=== PATIENT | female | born 1945 | race Caucasian/White ===

== ENCOUNTER 2019-08-29 14:23 | Outpatient (CLI) | payer MEDICARE, OTHER, SELFPAY | END 2019-08-29 14:24 | disposition home or self-care (01) | LOC: ONCMED 14:28 | PROVIDERS: Family Provider Nurse Practitioner Family; Visit Provider Internal Medicine Medical Oncology | DX: Z45.2 Encounter for adjustment and management of vascular access device (principal) | CPT/HCPCS: 96523 ==

== ENCOUNTER 2019-09-30 13:48 | Outpatient (CLI) | payer MEDICARE, OTHER, SELFPAY | END 2019-09-30 13:49 | disposition home or self-care (01) | LOC: ONCMED 13:48 | PROVIDERS: Family Provider Nurse Practitioner Family; PCP Nurse Practitioner Family; Visit Provider Internal Medicine Medical Oncology | DX: Z45.2 Encounter for adjustment and management of vascular access device (principal) | CPT/HCPCS: 96523 ==

== ENCOUNTER 2019-10-29 13:54 | Outpatient (CLI) | payer MEDICARE, OTHER, SELFPAY | END 2019-10-29 13:55 | disposition home or self-care (01) | LOC: ONCMED 13:57 | PROVIDERS: Family Provider Nurse Practitioner Family; PCP Nurse Practitioner Family; Visit Provider Internal Medicine Medical Oncology | DX: Z45.2 Encounter for adjustment and management of vascular access device (principal) | CPT/HCPCS: 96523 ==

== ENCOUNTER 2019-10-31 14:36 | Outpatient (RCR) | payer MEDICARE, OTHER, SELFPAY | END 2019-11-26 23:59 | disposition home or self-care (01) | LOC: SPT 14:36 | PROVIDERS: Family Provider Nurse Practitioner Family; PCP Nurse Practitioner Family; Referring Provider Orthopaedic Surgery; Visit Provider Orthopaedic Surgery | DX: M43.02 Spondylolysis, cervical region (principal); M54.2 Cervicalgia | CPT/HCPCS: 97110; 97161; 97530 ==

== ENCOUNTER 2019-12-05 14:06 | Outpatient (CLI) | payer MEDICARE, OTHER, SELFPAY ==
[2019-12-05 14:35] LABS: Basophils % 0.5 %; Eosinophils # 0.1 10^3/uL (0.0-0.8); Eosinophils % 1.5 %; Hematocrit 39.1 % (37.0-47.0); Hemoglobin 12.6 g/dL (11.5-15.3); Lymphocytes # 2.9 10^3/uL (0.8-4.8); Mean Corpuscular HGB Conc 32.2 g/dL (30.0-36.0); Mean Corpuscular Hemoglobin 30.1 pg (28.0-34.0); Mean Corpuscular Volume 93.5 fL (81-99); Mean Platelet Volume 11.2 fL (7.4-10.4); Monocytes # 0.9 10^3/uL (0.2-0.9); Monocytes % 12.4 %; Neutrophils # 3.4 10^3/uL (1.8-7.7); Neutrophils % 46.5 %; Nucleated Red Blood Cells % 0 %; Platelet Count 227 10^3/cmm (130-400); Red Blood Count 4.18 10^6/uL (4.1-5.3); Red Cell Distribution Width 15.9 % (12.1-15.1); White Blood Count 7.3 10^3/uL (4.0-10.0)
[2019-12-05 15:43] LABS: Alanine Aminotransferase 13 U/L (0-33); Albumin Level 4.5 g/dL (3.5-5.2); Alkaline Phosphatase 40 IU/L (35-105); Anion Gap 16.6 (5-19); Aspartate Amino Transferase 23 U/L (0-32); Blood Urea Nitrogen 16 mg/dL (8-23); Calcium 9.7 mg/dL (8.5-10.5); Carbon Dioxide 31 mmol/L (22-29); Chloride 99 mmol/L (98-107); Ferritin 19 ng/mL (15-150); Globulin 3.1 g/dL (1.3-4.6); Glucose 81 mg/dL (65-115); Iron 87 ug/dL (37-145); Osmolality Calculated 291 mOsm/kg (285-295); Percent Saturation 19.9 % (20-50); Potassium 3.6 mmol/L (3.5-5.1); Sodium 143 mmol/L (136-145); Total Bilirubin 0.5 mg/dL (0.15-1.2); Total Iron Binding Capacity 437 mcg/dl; Total Protein 7.6 g/dL (6.6-8.7); Unsaturated Iron Binding 350 ug/dL (112-347)
[2019-12-05] MEDS: denosumab 60 mg SDV SUBCUT (16:18)
--- NOTE | 2019-12-05 18:53 | ONC FU_ITS ---
Dr. Smith Patient Follow-Up Note Patient: Ayaka Butcher Unit #: [id number]: 1945 Dicatated By: Anthony Smith M.D.Date of Visit:Dec 05, 2019 Onc Med Follow-up/Prog Note Chief Complaint: Breast cancer. History of Present Illness: This is a 74 year-old woman with grade 1 infiltrating ductal carcinoma the right breast, stage IIA (T1c, N1, M0), ER/MO positive and HER-2/leno negative. She had presented with a lump in the right breast. She underwent excisional biopsy in August 2004. Pathology showed grade 1 infiltrating ductal carcinoma measuring 1.4 cm in maximum diameter. The tumor was ER and MO positive, both at 90%. It was negative for overexpression of HER-2/leno. There was microscopic involvement in one sentinel axillary lymph node. A subsequent axillary lymph node sampling showed no involvement in an additional 12 lymph nodes. She was given adjuvant chemotherapy with 3 cycles of FEC and 3 cycles of Taxotere. She completed chemotherapy in February 2005. She was then given radiation to the right breast, which she completed in May of 2005. She also was given adjuvant hormonal therapy with Femara, which she continued until May of 2010, at which point she had completed 5 years of treatment. 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 Thus far there has been no evidence of recurrence of her breast cancer. Her other medical illnesses include hypertension, hypercholesterolemia, hypothyroidism, and asthma. She has chronic atrial fibrillation, for which she is on anticoagulation with Pradaxa. She undergone placement of permanent pacemaker. She has degenerative arthritis and osteoporosis. She has been on treatment with Prolia. She also has had some anxiety/depression. She underwent right total knee arthroplasty in August of 2011. She subsequently had surgery on her left foot. She had arthroscopic surgery on her right shoulder in November 2014. She underwent placement of a pacemaker in 2016. In December 2017 she underwent ORIF for a traumatic right distal femur intercondylar periprosthetic fracture. She has a history of smoking 1 pack of cigarettes daily, but she quit smoking in 1997. INTERIM HISTORY: At her follow-up visit on 11/22/2018 she was noted to have 2 small nodules in the right breast. Her diagnostic right breast mammogram and ultrasound from 11/09/2018 was BI-RADS category 4A, suspicious. Findings included a focus of increased echotexture at the 10 o'clock position of the right breast for which biopsy was recommended. Ultrasound-guided needle biopsy of the right breast was then performed on 11/27/2018. Pathology showed dense eosinophilic connective tissues with no diagnostic tumor or significant atypia identified. It was noted that the tissue focally resembled benign cartilage or cortical bone. She is seen for a follow-up visit. Her main complaint is that she has been having a lot of pain in her neck, mainly on the left side. At times the pain is pretty severe. She was referred to a pain clinic and she was given some injections, but with no benefit. At some point she was evaluated with CT scan, which apparently just showed arthritis. She is managing it with tramadol, which she generally takes just at bedtime. She says that opiate pain medication and nonsteroidal medications bother her stomach. Her energy is not been real good, but she is still able to do some light work. She has good appetite. She has no fever, night sweats, or hot flashes. She sometimes has shortness of breath. She does not complain of cough. She has a little bit of chest pain with more strenuous exertion. She has acid reflux, but it is adequately managed with medication. Bowel function has been okay. She has urinary frequency and urgency with her diuretic. She also complains that her right leg is continued to bother her since the fracture/surgery. She occasionally has headache. She has a little bit of dizziness. 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 Medications: Azelastine HCl Solution Nasal daily PRN, Calcium + D Tablet Oral daily, Dexilant 1 (60 mg) Capsule Delayed Release Oral daily, Diltiazem HCl 1 (30 mg) Capsule SR 12 HR Oral daily, Furosemide 1 Tablet (of 40 mg) Oral daily, Lipitor 1 (10 mg) Tablet Oral at bedtime, Lyrica 1 Capsule (of 225 mg) Oral b.i.d., Metoprolol Tartrate 1.5 Tablet (of 25 mg) Oral daily, Potassium Chloride Alexa ER 1 Tablet (of 10 meq) Tablet, controlled release Oral daily, Pradaxa 1 Capsule (of 150 mg) Oral b.i.d., Synthroid 1 (100 mcg) Tablet Oral daily, TraMADol HCl 1 - 2 Tablet (of 50 mg) Oral q 6 hours PRN, Ventolin HFA 1 puff(s) (of 108 (90 base) mcg/act) Aerosol, solution Inhalation four times a day PRN, Voltaren 4 G (of 1 %) Gel (jelly) Transdermal b.i.d. Allergies: CILLINS and PAPER TAPE. Review of Systems: Constitutional - Her energy level has been lower. She does light work around the house. Her appetite is good and weight is stable. No fever, chills, hot flashes, or night sweats. ECOG score is 1, ENMT - She has seasonal allergies, and having persistent drainage. No mouth sores. No sore throat or difficulty swallowing, Hematologic/Lymphatic - She bruises easily, Respiratory - No shortness of breath. No cough. No pleuritic pain or hemoptysis, Cardiovascular - She has had intermittent angina pain when she over-exerts herself. She has atrial fibrillation, Gastrointestinal - No nausea or vomiting. She has acid reflux. No diarrhea or constipation. No blood in the stool or black stools, Genitourinary (F) - No dysuria or hematuria. She has urinary frequency and urgency with her diuretic. No incontinence, Musculoskeletal - She is having a constant pain in her neck, mainly the left side. At times it is severe. She had no improvement with injections which she received thru a pain clinic. She also has chronic pain in her right leg from a previous injury. She is getting some relief with tramadol, Integumentary - No skin complications, Neurologic - No headache. She has occasional dizziness. She continues to have neuropathy in her legs and feet, Psychiatric - No anxiety or depression. No insomnia. Vital Signs: Performed on Dec 05, 2019 15:37 Height - 63.00 in Weight - 142.4 lbs (LOW) BSA - 1.67 sq.m BMI - 25.23 Temperature - 98.3 F (LOW) Pulse - 70 /min Respiration - 18 /min BP - 118/75 mm(hg) O2 Sat - 97 % Pain - 7 Physical Examination: Constitutional - She looks pretty good generally, Eyes - Sclerae nonicteric. Conjunctivae clear, ENMT - No lesions noted in the oral cavity, Hematologic/Lymphatic - No cervical, clavicular, or axillary adenopathy, Respiratory - Lungs show diminished air movement bilaterally. There is no wheezing, Cardiovascular - Heart rhythm is irregular. There is a II/ systolic murmur. There is no gallop or rub noted, Abdomen - Soft. Liver and spleen are not enlarged. There is no abdominal mass or ascites noted and there is no inguinal adenopathy, Extremities - Slight swelling of the left foot, Neurologic - No focal neurologic deficits noted. Lab/Imaging: Test performed on Dec 05, 2019 14:10 Ferritin 19 ng/mL Iron 87 mcg/dL Sodium 143 mmol/L Iron Binding Capacity (TIBC) 437 mcg/dl Potassium 3.6 mmol/L % Iron Saturation 19.9 % Chloride 99 mmol/L CO2 31 mmol/L UIBC 350 mcg/dL Anion Gap 16.6 BUN 16 mg/dL Creatinine 0.9 mg/dL Cr Clearance (Est) 54.2300 mL/min Glucose 81 mg/dL Calcium 9.7 mg/dL Protein, Total 7.6 g/dL Albumin 4.5 g/dL Globulin 3.1 g/dL Bilirubin, Total 0.5 mg/dL ALT (SGPT) 13 U/L AST (SGOT) 23 U/L Alkaline Phosphatase 40 IU/L WBC 7.3 10 3/uL RBC 4.18 10 6/uL HGB 12.6 g/dL HCT 39.1 % MCV 93.5 fL MCH 30.1 pg MCHC 32.2 g/dL RDW 15.9 % Platelet Count 227 10 3/cmm MPV 11.2 fL Neutrophils 3.4 10 3/uL Lymphocytes 2.9 10 3/uL Monocytes 0.9 10 3/uL Eosinophils 0.1 10 3/uL Basophils 0.0 10 3/uL Neutrophil % 46.5 % Lymphocyte % 39.0 % Monocyte % 12.4 % Eosinophil % 1.5 % Basophils % 0.5 % Impression: 1. The patient has grade 1 infiltrating ductal carcinoma the right breast, stage IIA, ER/MO positive and HER-2/leno negative. 2. She underwent lumpectomy/axillary node sampling in August 2004. She was given adjuvant chemotherapy with FEC followed by Taxotere, completed in February 2005. 3. She completed radiation to the right breast in May 2005. 4. She continued adjuvant hormonal therapy with Femara until May 2010, at which point she had completed 5 years of treatment. 5. During followup she also was found to have osteoporosis, for which she has been on treatment with Prolia and calcium/vitamin D supplements. Her other medical illnesses include: 6. Hypertension. 7. Hyperlipidemia. 8. Chronic atrial fibrillation, on anticoagulation with Pradaxa. 9. She underwent placement of permanent pacemaker in 2016. 10. Hypothyroidism. 11. Asthma. 12. Obstructive sleep apnea. 13. Degenerative arthritis. 14. Anxiety/depression. In December 2017 she underwent ORIF for a traumatic distal right femur intracondylar periprosthetic fracture. She had gradual recovery, but she has had limited activity and she has had persistent pain in the right leg followig that surgery. At her follow-up visit on 10/25/2018 she was noted to have 2 small nodules in her right breast. Her right breast diagnostic mammogram and ultrasound were BI-RADS 4, suspicious. Ultrasound directed biopsy of the right breast on 11/27/2018 showed dense eosinophilic connective tissues with no diagnostic tumor or significant atypia identified. Focally there were tissues which resembled benign cartilage or cortical bone. During subsequent follow-up she had complain of shortness of breath and chest pain, and she had continuing follow-up with the clinical consultant and suction worker in [place]. At her followup visit April 2019 her laboratory studies showed evidence of iron deficiency, but that has improved with an iron/containing multiple vitamin. Recently she has been having a lot of pain in the neck area. She unfortunately did not get any benefit with local injections. A CT scan reportedly showed just arthritis and no evidence of metastatic disease. Overall, she has continued to have multiple complaints, but there has been no documented recurrence of the breast cancer. Plan: She remains on observation/expectant management for the breast cancer. She will be given Prolia 60 mg by subcutaneous injection. I will see her again in 6 months, or sooner as needed. Signed By: Anthony Smith M.D. <<Signature on File>>
== END 2019-12-05 14:07 | disposition home or self-care (01) ==
PROVIDERS: Family Provider Nurse Practitioner Family; PCP Nurse Practitioner Family; Visit Provider Internal Medicine Medical Oncology
DX: Z08 Encounter for follow-up examination after completed treatment for malignant neoplasm (principal); Z85.3 Personal history of malignant neoplasm of breast; M81.0 Age-related osteoporosis without current pathological fracture; M19.90 Unspecified osteoarthritis, unspecified site; E61.1 Iron deficiency; I10 Essential (primary) hypertension; E78.5 Hyperlipidemia, unspecified; I48.20 Chronic atrial fibrillation, unspecified; Z79.01 Long term (current) use of anticoagulants; Z95.0 Presence of cardiac pacemaker; E03.9 Hypothyroidism, unspecified; J45.909 Unspecified asthma, uncomplicated; G47.33 Obstructive sleep apnea (adult) (pediatric); F41.8 Other specified anxiety disorders; Z92.21 Personal history of antineoplastic chemotherapy; Z92.3 Personal history of irradiation; Z87.891 Personal history of nicotine dependence
CPT/HCPCS: 36591; 80053; 82728; 83540; 83550; 85025; 96372; 99214; J0897

== ENCOUNTER 2020-01-09 15:03 | Outpatient (CLI) | payer MEDICARE, OTHER, SELFPAY | END 2020-01-09 15:04 | disposition home or self-care (01) | LOC: ONCMED 15:11 | PROVIDERS: PCP Nurse Practitioner Family; Visit Provider Internal Medicine Medical Oncology | DX: Z45.2 Encounter for adjustment and management of vascular access device (principal); D50.9 Iron deficiency anemia, unspecified | CPT/HCPCS: 96523 ==

== ENCOUNTER 2020-02-10 14:07 | Outpatient (CLI) | payer MEDICARE, OTHER, SELFPAY | END 2020-02-10 14:08 | disposition home or self-care (01) | LOC: ONCMED 14:11 | PROVIDERS: PCP Nurse Practitioner Family; Visit Provider Internal Medicine Medical Oncology | DX: Z45.2 Encounter for adjustment and management of vascular access device (principal); D50.9 Iron deficiency anemia, unspecified | CPT/HCPCS: 96523 ==

== ENCOUNTER 2020-03-11 14:07 | Outpatient (CLI) | payer MEDICARE, OTHER, SELFPAY | END 2020-03-11 14:08 | disposition home or self-care (01) | LOC: ONCMED 14:12 | PROVIDERS: PCP Nurse Practitioner Family; Visit Provider Internal Medicine Medical Oncology | DX: Z45.2 Encounter for adjustment and management of vascular access device (principal); C50.211 Malignant neoplasm of upper-inner quadrant of right female breast; Z17.0 Estrogen receptor positive status [ER+]; M81.0 Age-related osteoporosis without current pathological fracture; D50.9 Iron deficiency anemia, unspecified | CPT/HCPCS: 96523 ==

== ENCOUNTER 2020-04-13 13:51 | Outpatient (CLI) | payer MEDICARE, OTHER, SELFPAY | END 2020-04-13 13:52 | disposition home or self-care (01) | LOC: ONCMED 13:53 | PROVIDERS: PCP Nurse Practitioner Family; Visit Provider Internal Medicine Medical Oncology | DX: D50.9 Iron deficiency anemia, unspecified (principal); C50.211 Malignant neoplasm of upper-inner quadrant of right female breast; Z17.0 Estrogen receptor positive status [ER+] | CPT/HCPCS: 36591 ==

== ENCOUNTER 2020-04-29 13:56 | Outpatient (CLI) | payer MEDICARE, OTHER, SELFPAY ==
--- NOTE | 2020-04-29 14:02 | XR_ITS ---
WS: [id number] SCREENING DEXA SCAN [employer] ([place]) CLINICAL INFORMATION: POSTMENOPAUSAL OSTEOPOROSIS COMPARISON: 018 FINDINGS: The L1-L4 bone mineral density measures 1.368 g/cm2. This corresponds to a T score score of 1.6 and Z score of 3.5. Left femoral neck bone mineral density measures 0.787 g/cm2. This corresponds to a T score of -1.8 an d Z score of 0.1. Right femoral neck bone mineral density measures 0.807 g/cm2. This corresponds to a T score -1.6of an d Z score of 0.3. Mean femoral neck bone mineral density measures 0.797 g/cm2. This corresponds to a T score of -1.7 an d Z score of 0.2. XR/XR DEXA axial skeleton* 43819 IMPRESSION: Osteopenia femoral necks. Patient's FRAX calculated 10 year probability for major osteoporotic fracture i s 21.2 % and osteoporotic hip fracture is 5.4%.
== END 2020-04-29 13:57 | disposition home or self-care (01) ==
LOC: RADWPI 14:00
PROVIDERS: PCP Nurse Practitioner Family; Visit Provider Nurse Practitioner Family
DX: Z78.0 Asymptomatic menopausal state (principal); M85.89 Other specified disorders of bone density and structure, multiple sites
CPT/HCPCS: 77080

== ENCOUNTER 2020-05-18 13:59 | Outpatient (CLI) | payer MEDICARE, OTHER, SELFPAY | END 2020-05-18 14:00 | disposition home or self-care (01) | LOC: ONCMED 14:03 | PROVIDERS: PCP Nurse Practitioner Family; Visit Provider Internal Medicine Medical Oncology | DX: Z45.2 Encounter for adjustment and management of vascular access device (principal) | CPT/HCPCS: 96523 ==

== ENCOUNTER 2020-06-15 06:12 | Outpatient (CLI) | payer MEDICARE, OTHER, SELFPAY ==
[2020-06-15 13:53] LABS: Basophils # 0.1 10^3/uL (0.0-0.1); Basophils % 0.9 %; Eosinophils # 0.1 10^3/uL (0.0-0.8); Eosinophils % 1.4 %; Hematocrit 40.1 % (37.0-47.0); Lymphocytes # 2.3 10^3/uL (0.8-4.8); Lymphocytes % 33.3 %; Mean Corpuscular HGB Conc 32.4 g/dL (30.0-36.0); Mean Corpuscular Volume 92.4 fL (81-99); Mean Platelet Volume 11.4 fL (7.4-10.4); Monocytes # 0.8 10^3/uL (0.2-0.9); Monocytes % 12.2 %; Neutrophils % 52.1 %; Nucleated Red Blood Cells % 0 %; Platelet Count 279 10^3/cmm (130-400); Red Blood Count 4.34 10^6/uL (4.1-5.3); Red Cell Distribution Width 14.7 % (12.1-15.1); White Blood Count 6.9 10^3/uL (4.0-10.0)
[2020-06-15 14:22] LABS: Alanine Aminotransferase 14 U/L (0-33); Albumin Level 4.6 g/dL (3.5-5.2); Alkaline Phosphatase 46 IU/L (35-105); Anion Gap 13.4 (5-19); Aspartate Amino Transferase 25 U/L (0-32); Blood Urea Nitrogen 12 mg/dL (8-23); Calcium 9.1 mg/dL (8.5-10.5); Carbon Dioxide 30 mmol/L (22-29); Chloride 100 mmol/L (98-107); Globulin 2.5 g/dL (1.3-4.6); Glucose 147 mg/dL (65-115); Osmolality Calculated 292 mOsm/kg (285-295); Potassium 3.4 mmol/L (3.5-5.1); Sodium 140 mmol/L (136-145); Total Bilirubin 0.7 mg/dL (0.15-1.2); Total Protein 7.1 g/dL (6.6-8.7)
[2020-06-15 14:51] LABS: 25 Hydroxy Vitamin D 43 ng/mL (30-100)
[2020-06-15] MEDS: denosumab 60 mg SDV SUBCUT (15:40)
--- NOTE | 2020-06-19 16:19 | ONC FU_ITS ---
Dr. Smith Patient Follow-Up Note Patient: Ayaka Butcher Unit #: [id number]: [id number] Dicatated By: Anthony Smith M.D.Date of Visit:Jun 15, 2020 Onc Med Follow-up/Prog Note Chief Complaint: Breast cancer. History of Present Illness: This is a 74 year-old woman with grade 1 infiltrating ductal carcinoma the right breast, stage IIA (T1c, N1, M0), ER/MI positive and HER-2/leno negative. She had presented with a lump in the right breast. She underwent excisional biopsy in August 2004. Pathology showed grade 1 infiltrating ductal carcinoma measuring 1.4 cm in maximum diameter. The tumor was ER and MI positive, both at 90%. It was negative for overexpression of HER-2/leno. There was microscopic involvement in one sentinel axillary lymph node. A subsequent axillary lymph node sampling showed no involvement in an additional 12 lymph nodes. She was given adjuvant chemotherapy with 3 cycles of FEC and 3 cycles of Taxotere. She completed chemotherapy in February 2005. She was then given radiation to the right breast, which she completed in May of 2005. She also was given adjuvant hormonal therapy with Femara, which she continued until May of 2010, at which point she had completed 5 years of treatment. 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 Thus far there has been no evidence of recurrence of her breast cancer. Her other medical illnesses include hypertension, hypercholesterolemia, hypothyroidism, and asthma. She has chronic atrial fibrillation, for which she is on anticoagulation with Pradaxa. She has degenerative arthritis and osteoporosis. She has been on treatment with Prolia. She also has had some anxiety/depression. She underwent right total knee arthroplasty in August of 2011. She subsequently had surgery on her left foot. She had arthroscopic surgery on her right shoulder in November 2014. She underwent placement of a pacemaker in 2016. In December 2017 she underwent ORIF for a traumatic right distal femur intercondylar periprosthetic fracture. She has a history of smoking 1 pack of cigarettes daily, but she quit smoking in 1997. INTERIM HISTORY: At her follow-up visit on 11/22/2018 she was noted to have 2 small nodules in the right breast. Her diagnostic right breast mammogram and ultrasound from 11/09/2018 was BI-RADS category 4A, suspicious. Findings included a focus of increased echotexture at the 10 o'clock position of the right breast for which biopsy was recommended. Ultrasound-guided needle biopsy of the right breast was then performed on 11/27/2018. Pathology showed dense eosinophilic connective tissues with no diagnostic tumor or significant atypia identified. It was noted that the tissue focally resembled benign cartilage or cortical bone. With those findings she continued observation/expectant management for the breast cancer. She also continued treatment with Prolia for the osteoporosis. She is seen for a follow-up visit. She has been feeling pretty good generally, though her energy is so-so. She has had worsening pain in her neck, and she indicates that she is going to be having neck surgery. She is still able to do light work. ECOG score is 1. Her appetite is good. She has no fever, night sweats, or hot flashes. She has some shortness of breath. She does not complain of cough and she has not been having chest pain. She continues to have some acid reflux. She has been on treatment with Dexilant. Bowel and bladder function have been okay. She also has persistent pain in her right leg following the fracture and surgery in 2018. Medications: Azelastine HCl Solution Nasal daily PRN, Calcium + D Tablet Oral daily, Dexilant 1 Capsule (of 60 mg) Capsule Delayed Release Oral daily, Furosemide 2 Tablet (of 20 mg) Oral daily, Lipitor 1 (10 mg) Tablet Oral at bedtime, Lyrica 1 Capsule (of 225 mg) Oral b.i.d., Metoprolol Tartrate 1.5 Tablet (of 25 mg) Oral daily, Potassium Chloride Alexa ER 1 Tablet (of 10 meq) Tablet, controlled release Oral daily, Synthroid 1 (100 mcg) Tablet Oral daily, Taztia XT 1 Capsule (of 120 mg) Capsule SR 24 HR Oral daily, TraMADol HCl 1 - 2 Tablet (of 50 mg) Oral q 6 hours PRN, Ventolin HFA 1 puff(s) (of 108 (90 base) mcg/act) Aerosol, solution Inhalation four times a day PRN, Vitamin D3 1 Tablet Oral daily, Voltaren 4 G (of 1 %) Gel (jelly) Transdermal b.i.d. Allergies: CILLINS and PAPER TAPE. Review of Systems: Constitutional - Her energy is so-so. She is able to do light work. Appetite is good and weight is stable. No fever, night sweats, or hot flashes. ECOG score is 1, ENMT - She has sinus congestion/drainage. No mouth sores. No sore throat or difficulty swallowing, Hematologic/Lymphatic - She does have some bruising on the Eliquis, Respiratory - She has some shortness of breath. No cough. No pleuritic pain or hemoptysis, Cardiovascular - No angina pain. No palpitations, Gastrointestinal - No nausea or vomiting. She has acid reflux. No diarrhea or constipation. No blood in the stool or black stools, Genitourinary (F) - No dysuria or hematuria. No urinary frequency. No urgency or incontinence, Musculoskeletal - She has pain in her neck and she continues to have pain in her right leg, Integumentary - No skin rash, Neurologic - She occasionally has headache. She does get a little bit lightheaded. She has some numbness/tingling in her left arm. No other focal neurologic symptoms, Psychiatric - She has some anxiety. She says she is able to sleep about 5 hours. Vital Signs: Performed on Jun 15, 2020 15:09 Height - 63.00 in Weight - 134.4 lbs (LOW) BSA - 1.63 sq.m BMI - 23.81 Temperature - 97.3 F (LOW) Pulse - 77 /min Respiration - 20 /min BP - 113/66 mm(hg) O2 Sat - 98 % Pain - 4 Physical Examination: Constitutional - She looks pretty good generally, Eyes - Sclerae nonicteric. Conjunctivae clear, ENMT - No lesions noted in the oral cavity, Hematologic/Lymphatic - No cervical or clavicular adenopathy, Respiratory - Lungs sound clear with diminished air movement bilaterally, Cardiovascular - Heart rhythm is irregular. There is a II/ systolic murmur. There is no gallop or rub noted, Breasts - The right breast is generally indurated. There is no discrete mass palpable. The left breast shows no mass. There is no axillary adenopathy, Abdomen - Soft. Liver and spleen are not enlarged. There is no abdominal mass or ascites noted and there is no inguinal adenopathy, Extremities - No edema, Neurologic - No focal neurologic deficits noted. Lab/Imaging: Test performed on Jun 15, 2020 13:30 Sodium 140 mmol/L Vitamin D (25-Hydroxy), Total 43 ng/mL Potassium 3.4 mmol/L Chloride 100 mmol/L CO2 30 mmol/L Anion Gap 13.4 BUN 12 mg/dL Creatinine 0.7 mg/dL Cr Clearance (Est) 65.80 mL/min Glucose 147 mg/dL Osmolality - Calculated 292 mOsm/kg Calcium 9.1 mg/dL Protein, Total 7.1 g/dL Albumin 4.6 g/dL Globulin 2.5 g/dL Bilirubin, Total 0.7 mg/dL ALT (SGPT) 14 U/L AST (SGOT) 25 U/L Alkaline Phosphatase 46 IU/L WBC 6.9 10 3/uL RBC 4.34 10 6/uL HGB 13.0 g/dL HCT 40.1 % MCV 92.4 fL MCH 30.0 pg MCHC 32.4 g/dL RDW 14.7 % Platelet Count 279 10 3/cmm MPV 11.4 fL Neutrophils 3.60 10 3/uL Lymphocytes 2.3 10 3/uL Monocytes 0.8 10 3/uL Eosinophils 0.1 10 3/uL Basophils 0.1 10 3/uL Neutrophil % 52.1 % Lymphocyte % 33.3 % Monocyte % 12.2 % Eosinophil % 1.4 % Basophils % 0.9 % NRBC % 0 % Impression: 1. The patient has grade 1 infiltrating ductal carcinoma the right breast, stage IIA, ER/MI positive and HER-2/leno negative. 2. She underwent lumpectomy/axillary node sampling in August 2004. She was given adjuvant chemotherapy with FEC followed by Taxotere, completed in February 2005. 3. She completed radiation to the right breast in May 2005. 4. She continued adjuvant hormonal therapy with Femara until May 2010, at which point she had completed 5 years of treatment. 5. During followup she also was found to have osteoporosis, for which she has been on treatment with Prolia and calcium/vitamin D supplements. Her other medical illnesses include: 6. Hypertension. 7. Hyperlipidemia. 8. Chronic atrial fibrillation, on anticoagulation with Pradaxa. 9. She underwent placement of permanent pacemaker in 2017. 10. Hypothyroidism. 11. Asthma. 12. Obstructive sleep apnea. 13. Degenerative arthritis. 14. Anxiety/depression. In December 2017 she underwent ORIF for a traumatic distal right femur intracondylar periprosthetic fracture. She had gradual recovery, but she has had limited activity and she has had persistent pain in the right leg followig that surgery. At her follow-up visit on 10/25/2018 she was noted to have 2 small nodules in her right breast. Her right breast diagnostic mammogram and ultrasound were BI-RADS 4, suspicious. Ultrasound directed biopsy of the right breast on 11/27/2018 showed dense eosinophilic connective tissues with no diagnostic tumor or significant atypia identified. Focally there were tissues which resembled benign cartilage or cortical bone. During subsequent follow-up she had complain of shortness of breath and chest pain, and she had continuing follow-up with the qc analyst and air traffic control supervisor in [place]. At her followup visit April 2019 her laboratory studies showed evidence of iron deficiency, but that improved with an iron/containing multiple vitamin. She has had worsening neck pain, and she apparently is now going to be having surgery on her neck. She has persistent pain in her right leg following the fracture and surgery in 2018. However, thus far there has been no evidence of recurrence of the breast cancer. Plan: She remains on observation/expectant management for the breast cancer. She will be given Prolia 60 mg by subcutaneous injection for her osteoporosis. I will see her again in 6 months, or sooner as needed. In the meantime, she will increase her potassium supplement to twice a day. Signed By: Anthony Smith M.D. <<Signature on File>>
== END 2020-06-15 06:13 | disposition home or self-care (01) ==
LOC: ONCMED 06:14
PROVIDERS: PCP Nurse Practitioner Family; Visit Provider Internal Medicine Medical Oncology
DX: Z08 Encounter for follow-up examination after completed treatment for malignant neoplasm (principal); Z85.3 Personal history of malignant neoplasm of breast; M81.0 Age-related osteoporosis without current pathological fracture; D50.9 Iron deficiency anemia, unspecified; E03.9 Hypothyroidism, unspecified; E78.5 Hyperlipidemia, unspecified; F41.9 Anxiety disorder, unspecified; F32.9 Major depressive disorder, single episode, unspecified; I10 Essential (primary) hypertension; I48.0 Paroxysmal atrial fibrillation; G47.33 Obstructive sleep apnea (adult) (pediatric); J45.909 Unspecified asthma, uncomplicated; Z79.01 Long term (current) use of anticoagulants; Z95.0 Presence of cardiac pacemaker
CPT/HCPCS: 36591; 80053; 82306; 85025; 96372; 99214; J0897

== ENCOUNTER 2020-06-26 10:53 | Outpatient (CLI) | payer MEDICARE, OTHER, SELFPAY ==
--- NOTE | 2020-06-26 11:00 | MM_ITS ---
WS: [id number] DIAGNOSTIC BILATERAL DIGITAL MAMMOGRAM WITH CAD HISTORY: HX OF BREAST CA COMPARISON: 06/20/2019, 03/07/2019, 04/25/2018 TECHNIQUE: Bilateral craniocaudad, mediolateral oblique, and mediolateral views are submitted. Comput er aided detection utilized. Breast composition: There are scattered areas of fibroglandular density. Volume loss in the RIGHT manuel ast. Postsurgical changes. There is an area of scarring and soft tissue thickening central to the nip ple which is been present on prior studies. No new findings. Benign calcifications in each breast. MM/[place] [id number] IMPRESSION: BI-RADS: 2-Benign FOLLOW UP: 1 Year Follow-up
== END 2020-06-26 10:54 | disposition home or self-care (01) ==
LOC: ONCMED 10:57
PROVIDERS: PCP Nurse Practitioner Family; Visit Provider Internal Medicine Medical Oncology
DX: Z85.3 Personal history of malignant neoplasm of breast (principal)
CPT/HCPCS: 77066

== ENCOUNTER 2020-07-13 06:26 | Outpatient (CLI) | payer MEDICARE, OTHER, SELFPAY | END 2020-07-13 06:27 | disposition home or self-care (01) | LOC: ONCMED 06:27 | PROVIDERS: PCP Nurse Practitioner Family; Visit Provider Nurse Practitioner | DX: Z45.2 Encounter for adjustment and management of vascular access device (principal) | CPT/HCPCS: 96523 ==

== ENCOUNTER 2020-08-10 14:58 | Outpatient (CLI) | payer MEDICARE, OTHER, SELFPAY | END 2020-08-10 14:59 | disposition home or self-care (01) | LOC: ONCMED 15:01 | PROVIDERS: PCP Family Medicine; Visit Provider Nurse Practitioner | DX: Z45.2 Encounter for adjustment and management of vascular access device (principal) | CPT/HCPCS: 96523 ==

== ENCOUNTER 2020-09-14 14:58 | Outpatient (CLI) | payer MEDICARE, OTHER, SELFPAY | END 2020-09-14 14:59 | disposition home or self-care (01) | PROVIDERS: PCP Family Medicine; Visit Provider Nurse Practitioner | DX: Z45.2 Encounter for adjustment and management of vascular access device (principal) | CPT/HCPCS: 96523 ==

== ENCOUNTER 2020-10-20 14:55 | Outpatient (CLI) | payer MEDICARE, OTHER, SELFPAY | END 2020-10-20 14:56 | disposition home or self-care (01) | LOC: ONCMED 14:58 | PROVIDERS: PCP Family Medicine; Visit Provider Nurse Practitioner | DX: Z45.2 Encounter for adjustment and management of vascular access device (principal) | CPT/HCPCS: 96523 ==

== ENCOUNTER 2020-11-23 14:57 | Outpatient (CLI) | payer MEDICARE, OTHER, SELFPAY | END 2020-11-23 14:58 | disposition home or self-care (01) | LOC: ONCMED 15:00 | PROVIDERS: PCP Family Medicine; Visit Provider Nurse Practitioner | DX: Z45.2 Encounter for adjustment and management of vascular access device (principal) | CPT/HCPCS: 96523 ==

== ENCOUNTER 2020-12-09 12:31 | Outpatient (CLI) | payer MEDICARE, OTHER, SELFPAY ==
[2020-12-09 13:05] LABS: Basophils # 0.1 10^3/uL (0.0-0.1); Basophils % 0.8 %; Eosinophils # 0.1 10^3/uL (0.0-0.8); Eosinophils % 1.3 %; Hematocrit 35.8 % (37.0-47.0); Hemoglobin 11.3 g/dL (11.5-15.3); Lymphocytes # 1.7 10^3/uL (0.8-4.8); Lymphocytes % 27.5 %; Mean Corpuscular HGB Conc 31.6 g/dL (30.0-36.0); Mean Corpuscular Hemoglobin 27.8 pg (28.0-34.0); Mean Platelet Volume 10.8 fL (7.4-10.4); Monocytes # 0.8 10^3/uL (0.2-0.9); Monocytes % 12.7 %; Neutrophils # 3.52 10^3/uL (1.8-7.7); Neutrophils % 57.4 %; Nucleated Red Blood Cells % 0 %; Platelet Count 272 10^3/cmm (130-400); Red Blood Count 4.07 10^6/uL (4.1-5.3); Red Cell Distribution Width 15.3 % (12.1-15.1); White Blood Count 6.1 10^3/uL (4.0-10.0)
[2020-12-09 13:47] LABS: 25 Hydroxy Vitamin D 48 ng/mL (30-100); Alanine Aminotransferase 14 U/L (0-33); Albumin Level 4.1 g/dL (3.5-5.2); Alkaline Phosphatase 61 IU/L (35-105); Anion Gap 12.1 (5-19); Aspartate Amino Transferase 23 U/L (0-32); Blood Urea Nitrogen 10 mg/dL (8-23); Calcium 8.6 mg/dL (8.5-10.5); Carbon Dioxide 30 mmol/L (22-29); Chloride 97 mmol/L (98-107); Globulin 2.6 g/dL (1.3-4.6); Glucose 83 mg/dL (65-115); Osmolality Calculated 278 mOsm/kg (285-295); Potassium 4.1 mmol/L (3.5-5.1); Sodium 135 mmol/L (136-145); Total Bilirubin 0.8 mg/dL (0.15-1.2); Total Protein 6.7 g/dL (6.6-8.7)
[2020-12-09] MEDS: denosumab 60 mg SDV SUBCUT (14:45)
[2020-12-09 14:54] LABS: Iron 62 ug/dL (37-145); Percent Saturation 13.8 % (20-50); Total Iron Binding Capacity 448 mcg/dl; Unsaturated Iron Binding 386 ug/dL (112-347)
--- NOTE | 2020-12-10 07:16 | ONC FU_ITS ---
Dr. Smith Patient Follow-Up Note Patient: Ayaka Butcher Unit #: [id number]: 1945 Dicatated By: Anthony Smith M.D.Date of Visit:Dec 09, 2020 Onc Med Follow-up/Prog Note Chief Complaint: Breast cancer. History of Present Illness: This is a 75 year-old woman with grade 1 infiltrating ductal carcinoma the right breast, stage IIA (T1c, N1, M0), ER/KY positive and HER-2/leno negative. She had presented with a lump in the right breast. She underwent excisional biopsy in August 2004. Pathology showed grade 1 infiltrating ductal carcinoma measuring 1.4 cm in maximum diameter. The tumor was ER and KY positive, both at 90%. It was negative for overexpression of HER-2/leno. There was microscopic involvement in one sentinel axillary lymph node. A subsequent axillary lymph node sampling showed no involvement in an additional 12 lymph nodes. She was given adjuvant chemotherapy with 3 cycles of FEC and 3 cycles of Taxotere. She completed chemotherapy in February 2005. She was then given radiation to the right breast, which she completed in May of 2005. She also was given adjuvant hormonal therapy with Femara, which she continued until May of 2010, at which point she had completed 5 years of treatment. 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 Thus far there has been no evidence of recurrence of her breast cancer. Her other medical illnesses include hypertension, hypercholesterolemia, hypothyroidism, and asthma. She has chronic atrial fibrillation, for which she is on anticoagulation with Pradaxa. She has degenerative arthritis and osteoporosis. She has been on treatment with Prolia. She also has had some anxiety/depression. She underwent right total knee arthroplasty in August of 2011. She subsequently had surgery on her left foot. She had arthroscopic surgery on her right shoulder in November 2014. She underwent placement of a pacemaker in 2016. In December 2017 she underwent ORIF for a traumatic right distal femur intercondylar periprosthetic fracture. She has a history of smoking 1 pack of cigarettes daily, but she quit smoking in 1997. INTERIM HISTORY: At her follow-up visit on 11/22/2018 she was noted to have 2 small nodules in the right breast. Her diagnostic right breast mammogram and ultrasound from 11/09/2018 was BI-RADS category 4A, suspicious. Findings included a focus of increased echotexture at the 10 o'clock position of the right breast for which biopsy was recommended. Ultrasound-guided needle biopsy of the right breast was then performed on 11/27/2018. Pathology showed dense eosinophilic connective tissues with no diagnostic tumor or significant atypia identified. It was noted that the tissue focally resembled benign cartilage or cortical bone. With those findings she continued observation/expectant management for the breast cancer. She also continued treatment with Prolia for the osteoporosis. Her repeat bone density on 04/29/2020 showed osteopenia with T score -1.8 in the left femoral neck and -1.6 in the right femoral neck. The lumbar spine showed normal T score 1.6. She is seen for a follow-up visit. She has been feeling pretty good generally. She recently underwent a root canal procedure, and she does have a sore jaw from that. She has not had much activity lately, but her energy is otherwise pretty good. ECOG score is 1. She has good appetite. She has not had fever or hot flashes. She had 1 recent episode of sweating. She has some allergy related sinus symptoms. She does not complain of cough. She does have shortness of breath with activity. She uses oxygen as needed. She occasionally has a little chest pain. She has had some acid reflux, but it is generally controlled with her medication. Bowel and bladder function have been okay. She has had significant improvement in her neck pain following cervical spine surgery in June. She still has some pain in her right leg and knee, and she also has some pain in her left foot. She does not complain of headache, and she has no focal neurologic symptoms. Medications: Azelastine HCl Solution Nasal daily PRN, Calcium + D Tablet Oral daily, Dexilant 1 Capsule (of 60 mg) Capsule Delayed Release Oral daily, Furosemide 2 Tablet (of 20 mg) Oral daily, Lipitor 1 (10 mg) Tablet Oral at bedtime, Lyrica 1 Capsule (of 225 mg) Oral b.i.d., Metoprolol Tartrate 1.5 Tablet (of 25 mg) Oral daily, Potassium Chloride Alexa ER 1 Tablet (of 10 meq) Tablet, controlled release Oral daily, Synthroid 1 (100 mcg) Tablet Oral daily, Taztia XT 1 Capsule (of 120 mg) Capsule SR 24 HR Oral daily, TraMADol HCl 1 - 2 Tablet (of 50 mg) Oral q 6 hours PRN, Ventolin HFA 1 puff(s) (of 108 (90 base) mcg/act) Aerosol, solution Inhalation four times a day PRN, Vitamin D3 1 Tablet Oral daily, Voltaren 4 G (of 1 %) Gel (jelly) Transdermal b.i.d. Allergies: CILLINS and PAPER TAPE. Vital Signs: Performed on Dec 09, 2020 15:09 Height - 63.00 in Weight - 140.4 lbs (HIGH) BSA - 1.66 sq.m BMI - 24.87 Temperature - 95.8 F (LOW) Pulse - 88 /min Respiration - 18 /min BP - 97/68 mm(hg) O2 Sat - 96 % Pain - 6 Fatigue - 3 Physical Examination: Constitutional - She looks pretty good generally, Eyes - Sclerae nonicteric. Conjunctivae clear, ENMT - No lesions noted in the oral cavity, Hematologic/Lymphatic - No cervical, clavicular, or axillary adenopathy, Respiratory - Lungs sound clear with diminished air movement bilaterally, Cardiovascular - Heart rhythm is irregular. There is a II/ systolic murmur. There is no gallop or rub noted, Abdomen - Soft. Liver and spleen are not enlarged. There is no abdominal mass or ascites noted and there is no inguinal adenopathy, Extremities - There is mild swelling of the left leg, Neurologic - No focal neurologic deficits noted. Lab/Imaging: Test performed on Dec 09, 2020 12:50 Iron 62 mcg/dL Sodium 135 mmol/L Vitamin D (25-Hydroxy), Total 48 ng/mL Iron Binding Capacity (TIBC) 448 mcg/dl Potassium 4.1 mmol/L % Iron Saturation 13.8 % Chloride 97 mmol/L CO2 30 mmol/L UIBC 386 mcg/dL Anion Gap 12.1 BUN 10 mg/dL Creatinine 0.6 mg/dL Cr Clearance (Est) 78.94 mL/min Glucose 83 mg/dL Osmolality - Calculated 278 mOsm/kg Calcium 8.6 mg/dL Protein, Total 6.7 g/dL Albumin 4.1 g/dL Globulin 2.6 g/dL Bilirubin, Total 0.8 mg/dL ALT (SGPT) 14 U/L AST (SGOT) 23 U/L Alkaline Phosphatase 61 IU/L WBC 6.1 10 3/uL RBC 4.07 10 6/uL HGB 11.3 g/dL HCT 35.8 % MCV 88.0 fL MCH 27.8 pg MCHC 31.6 g/dL RDW 15.3 % Platelet Count 272 10 3/cmm MPV 10.8 fL Neutrophils 3.52 10 3/uL Lymphocytes 1.7 10 3/uL Monocytes 0.8 10 3/uL Eosinophils 0.1 10 3/uL Basophils 0.1 10 3/uL Neutrophil % 57.4 % Lymphocyte % 27.5 % Monocyte % 12.7 % Eosinophil % 1.3 % Basophils % 0.8 % NRBC % 0 % Problem List: 1. Grade 1 infiltrating ductal carcinoma the right breast, stage IIA, ER/KY positive and HER-2/leno negative. She underwent lumpectomy/axillary node sampling in August 2004. 2. 2. During followup she was found to have osteoporosis, for which she has been on treatment with Prolia and calcium/vitamin D supplements. 3. She has had iron deficiency anemia. 3. Hypertension. 4. Hyperlipidemia. 5. Chronic atrial fibrillation, on anticoagulation with Pradaxa. 6. She underwent placement of permanent pacemaker in 2016. 7. Hypothyroidism. 8. Asthma. 9. Obstructive sleep apnea. 10. Degenerative arthritis. 11. In December 2017 she underwent ORIF for a traumatic distal right femur intracondylar periprosthetic fracture. 12. Anxiety/depression. Problems Addressed with this Encounter and Plan: 1. The patient has grade 1 infiltrating ductal carcinoma the right breast, stage IIA, ER/KY positive and HER-2/leno negative. She underwent lumpectomy/axillary node sampling in August 2004. She was given adjuvant chemotherapy with FEC followed by Taxotere, completed in February 2005. She completed radiation to the right breast in May 2005. She continued adjuvant hormonal therapy with Femara until May 2010, at which point she had completed 5 years of treatment. She was then followed expectantly. During follow-up she has had persistent neuropathy symptoms from the chemotherapy. In November 2018 she underwent ultrasound-guided needle biopsy of the right breast for suspicious changes on her surveillance mammogram, but pathology showed no malignancy. Overall, she has been doing well clinically with no evidence of recurrence of the breast cancer. She remains on observation/expectant management for the breast cancer. She should continue yearly surveillance with bilateral diagnostic mammograms. These will be due again in May, I will get those scheduled. I also will have her see Dr. Thakkar for removal of her Port-A-Cath. At this point she will otherwise just continue regular follow-up with [facility], and I will plan to see her again only as needed. 2. In the past she had evidence of osteoporosis, for which she has been on treatment with Prolia. On her repeat DEXA scan in April 2020, her femoral neck T-scores were in the osteopenia range. As such, she will be given her scheduled dose of Prolia today, but beyond that she will just continue her vitamin D supplementation and surveillance DEXA scans at 2-year intervals. 3. She is again mildly anemic with evidence of iron deficiency. She will continue her oral iron supplementation, I will schedule her for follow-up labs in 3 months. If she is not able to corrected with oral iron, she will be given the option to have parenteral iron replacement. Signed By: Anthony Smith M.D. <<Signature on File>>
== END 2020-12-09 12:32 | disposition home or self-care (01) ==
LOC: ONCMED 12:33
PROVIDERS: PCP Family Medicine; Visit Provider Internal Medicine Medical Oncology
DX: C50.811 Malignant neoplasm of overlapping sites of right female breast (principal); Z17.0 Estrogen receptor positive status [ER+]; M81.0 Age-related osteoporosis without current pathological fracture; D50.9 Iron deficiency anemia, unspecified; I10 Essential (primary) hypertension; E78.5 Hyperlipidemia, unspecified; I48.20 Chronic atrial fibrillation, unspecified; Z95.0 Presence of cardiac pacemaker; E03.9 Hypothyroidism, unspecified; J45.909 Unspecified asthma, uncomplicated; G47.33 Obstructive sleep apnea (adult) (pediatric); F41.9 Anxiety disorder, unspecified; F32.9 Major depressive disorder, single episode, unspecified; Z79.811 Long term (current) use of aromatase inhibitors; Z79.899 Other long term (current) drug therapy
CPT/HCPCS: 36591; 80053; 82306; 83540; 83550; 85025; 96372; 99214; J0897

== ENCOUNTER 2020-12-31 15:14 | Emergency (ER) | payer MEDICARE, OTHER, SELFPAY ==
--- NOTE | 2020-12-31 15:24 | XR_ITS ---
WS: [id number] Right foot, 2 views, 12/31/2020 Clinical Data: fall Comparison: None. Findings: No fractures or dislocations are seen. No bone destruction or erosion is noted. The joint spaces and soft tissues are normal. XR/XR foot RT 2V [id number] Impression: Negative right foot.
--- NOTE | 2020-12-31 15:24 | XR_ITS ---
WS: [id number] Right ankle, 2 views, 12/31/2020 Clinical Data: fall Comparison: None. Findings: No fractures or dislocations are seen. The ankle mortise is normal. The talus and calcaneus are unrem arkable. There is soft tissue swelling over the lateral malleolus. XR/XR ankle RT 2V [id number] Impression: 1. Negative for right ankle fracture. 2. Soft tissue swelling over lateral malleolus.
--- NOTE | 2020-12-31 15:28 | ED_ITS ---
HPI - Extremity Injury (Lower) General: Chief Complaint: Extremity Injury, Lower Stated Complaint: ANKLE PAIN AND SWELLING Time Seen by Provider: 12/31/20 15:20 History of Present Illness: HPI Narrative: The patient is a 75-year-old female who comes to the ER after she slipped in her shoe and rolled her right ankle. Complains of pain swelling and tenderness to the right ankle and foot. There is some bruising there. She did put an ice pack on it at home and waited an hour to call an ambulance. Neurovascularly intact distal to injury. Type of Injury: inversion Place: home Severity: moderate Relieving factors: immobilization Exacerbating factors: weight bearing, movement and palpation Context: fall Associated symptoms: Reports no associated symptoms Review of Systems General: Reports: 10 or more systems reviewed and unremarkable except in HPI and below Const: Denies: fatigue Eyes: Denies: change in vision, blurry vision or eye redness ENMT: Denies: throat pain, swelling of lips/tongue, ear or mastoid pain or nasal congestion Card: Denies: chest pain, palpitations, irregular heart rhythm, edema, dyspnea on exertion or orthopnea Resp: Denies: dyspnea, productive cough or non-productive cough GI: Denies: abdominal pain, diarrhea or GI cramping : Denies: flank pain, difficulty voiding, urinary frequency or urinary urgency Musc: Denies: neck pain, back pain, extremity pain, joint pain, joint redness, limited range of motion or muscle weakness Skin/Breast: Denies: rash, pruritus, erythema, skin pain or skin tenderness Neuro: Denies: headache(s), numbness in extremities, weakness in extremities, sensory changes, difficulty walking, dizziness, confusion or Slurred speech present Psych: Denies: anxiety or depression Endo: Denies: polyuria All/Imm: Denies: urticaria, throat swelling or tongue swelling PFSH ED PFSH: Medical History Atrial fibrillation History of pacemaker Hyperlipemia Hypothyroidism Port-A-Cath in place Vitamin D deficiency Surgical History History of cholecystectomy History of foot surgery History of lumpectomy of right breast History of total right knee replacement Family History Denies family history of Anesthesia complication Bleeding disorder Social History Smoking and tobacco status: former smoker Alcohol intake: never Physical Exam Const: COMMON NORMALS: no acute distress, average body habitus, patient oriented x3, no limitations, healthy appearing, alert and well nourished GENERAL APPEARANCE: cooperative, comfortable, well kempt and well developed ORIENTATION/CONSCIOUSNESS: Yes awake, Yes oriented to person, Yes oriented to place and Yes oriented to time HENMT: COMMON NORMALS: normocephalic, external ears normal and Normal external nose present HEAD & SCALP: normal to inspection and normocephalic NOSE: Normal external nose present EXTERNAL EAR: Yes external ears normal MOUTH: Normal oral and palatal mucosa present THROAT: posterior oropharynx normal Eye: COMMON NORMALS: Equal, round and reactive pupils present and EOMs intact bilaterally GENERAL EYE: appearance normal, both eyes and all related structures PUPIL: Yes Equal, round and reactive pupils present Neck/C-Spine: COMMON NORMALS: full ROM, no lymphadenopathy, no meningeal signs and no JVD GENERAL: Yes normal visual inspection Lymph: LYMPHATIC: no lymphadenopathy noted Chest: COMMONS NORMALS: normal inspection of the chest and normal palpation of entire chest wall Resp: COMMON NORMALS: normal respiratory effort, No retractions, No use of accessory muscles, clear to auscultation bilaterally and percussion normal EFFORT & INSPECTION: Yes able to speak in complete sentences AUSCULTATION: clear to auscultation bilaterally PERCUSSION: percussion normal Cardio: COMMON NORMALS: no JVD, regular rate, S1 normal heart sound present, S2 normal heart sound present and Peripheral pulses 2+ throughout RATE: regular rate RHYTHM: abnormal rhythm (paced on and off.) irregularly irregular HEART SOUNDS: S1 normal heart sound present and S2 normal heart sound present PERIPHERAL PULSES: Peripheral pulses 2+ throughout GI: COMMON NORMALS: Normal to inspection, nondistended, normoactive bowel sounds present, Soft to palpation, non-tender and no masses INSPECTION: Yes normal to inspection PALPATION: Yes Soft to palpation : COMMON NORMALS: Yes no CVA tenderness BLADDER/KIDNEY EXAM: Yes no CVA tenderness Back/Pelvis: COMMON NORMALS: no CVA tenderness, thoracic and lumbar spine normal to inspection, no thoracic nor lumbar tenderness and thoraco-lumbar ROM normal Extremity: COMMON NORMALS: normal to inspection, full ROM, capillary refill normal, no joint enlargement and no pedal edema GENERAL: Yes normal exam except as noted Neuro: COMMON NORMALS: patient oriented x3, CN's II-XII intact bilaterally, moves all extremities, no focal motor deficits, no sensory deficits noted and gait normal SENSORIUM/ORIENTATION: Yes alert, Yes oriented to person, Yes oriented to place and Yes oriented to time MENINGEAL SIGNS: Yes no meningeal signs Psych: COMMON NORMALS: mental status grossly normal, Normal thought process present, cooperative, normal affect and speech normal APPEARANCE: Yes well kempt ATTITUDE: Yes calm SPEECH: Yes normal speech THOUGHT PROCESS: Normal thought process present Skin: COMMON NORMALS: no rashes or lesions noted GENERAL SKIN EXAM: no rashes or lesions noted Course Vital Signs: Vital signs: Vital Signs Temperature 98.3 F 12/31/20 15:30 Pulse Rate 66 12/31/20 15:41 Respiratory Rate 16 12/31/20 15:41 Blood Pressure 111/56 12/31/20 15:41 Pulse Oximetry 97 12/31/20 15:41 MDM - Extremity Injury (Lower) MDM Narrative: Medical decision making narrative: The patient tripped and fell. X-rays are negative for fracture. She does have some swelling and bruising there. And takes apixaban for her chronic A. fib. Recommended she follow-up with orthopedic surgery in a week and placed a case management consult to help her get that appointment. ER with worsening symptoms at any time. She will let pain guide her activity and she has conveniently a knee walker at home from a previous injury. She will use this to help get around. Discharge Plan Discharge Patient Disposition: Home Clinical Impression: Ankle sprain Condition: Stable Prescriptions: No Action calcium carbonate-vitamin D3 500 mg(1,250mg) -200 unit tablet 1 tab PO DAILY RF: 0 cholecalciferol (vitamin D3) 25 mcg (1,000 unit) capsule 25 mcg PO DAILY RF: 0 Dexilant 60 mg capsule,biphase delayed releas 60 mg PO DAILY RF: 0 levothyroxine 100 mcg capsule 100 mcg PO DAILY RF: 0 potassium chloride 10 mEq capsule, extended release 10 meq PO DAILY RF: 0 furosemide 20 mg tablet 20 mg PO DAILY RF: 0 diltiazem HCl [Tiadylt ER] 120 mg capsule,extended release 24 hr 120 mg PO DAILY RF: 0 metoprolol succinate 25 mg tablet extended release 24 hr 25 mg PO DAILY RF: 0 atorvastatin 10 mg tablet 10 mg PO DAILY RF: 0 pregabalin 225 mg capsule 225 mg PO DAILY RF: 0 Eliquis 5 mg tablet 5 mg PO BID RF: 0 tramadol 50 mg tablet 50 mg PO Q6H PRNRF: 0 Discharge Orders: Discharge ED (Routine); Ordered 12/31/20 Ordered By: Edgard Lara Referrals: Carmen Morejon RN [Primary Care Provider] - Discharge Diet: Advance as tolerated Discharge Activity: Increase activity as tolerated Patient Instructions: Ankle Sprain (ED), Opioid Safety Activity Restrictions/Additional Instructions: You most likely have an ankle sprain. You may [place] wrap it to help with your pain and swelling as well as ice 20 minutes on 3 times a day. Tylenol for pain. Let pain guide her activity. You may want to keep weight off this foot is much as possible but start using it a little bit as this will help speed your recovery. Please see your primary doctor in a week if you are still having pain. I have placed a case management consult to help you get an appointment with an orthopedic surgeon to discuss this further as well. Coding Level of Care Code ED Senior Business Process Analyst for [employer] Exam Comprehensive
[2020-12-31 15:30] VITALS: BP 111/56; PULSE 66; RESP 18; TEMP 36.8; O2SAT 97; BMI 24.3
[2020-12-31 15:41] VITALS: BP 111/56; PULSE 66; RESP 16; O2SAT 97
--- NOTE | 2021-01-04 10:34 | DCPLANNER ---
legal operations manager had message to schedule a follow up appointment for patient with ortho. legal operations manager called the ortho clinic, spoke with Johanny, gave clinic patients information. legal operations manager was told that patients information would be printed and reviewed. Clinic will call patient with appointment information.
--- NOTE | 2021-01-15 15:28 | DCPLANNER ---
Patient had a follow up appointment scheduled for 01.13.[address] Kinsey at [facility]- patient did attend appointment.
== END 2020-12-31 17:32 | disposition home or self-care (01) ==
PROVIDERS: Emergency Provider Family Medicine
DX: S93.401A Sprain of unspecified ligament of right ankle, initial encounter (principal); Z79.01 Long term (current) use of anticoagulants; I48.91 Unspecified atrial fibrillation; Z95.0 Presence of cardiac pacemaker; E78.5 Hyperlipidemia, unspecified; Z87.891 Personal history of nicotine dependence; X50.1XXA Overexertion from prolonged static or awkward postures, initial encounter
CPT/HCPCS: 73600; 73620; 99283

== ENCOUNTER 2021-01-06 07:52 | Day surgery (SDC) | payer MEDICARE, OTHER, SELFPAY ==
[2021-01-05 09:24] VITALS: BMI 23.9
[2021-01-06] VITALS (7 sets, daily range): BP systolic 127–179; BP diastolic 77–114; PULSE 74–90; RESP 14–18; TEMP 36.6–36.7; O2SAT 96–100
--- NOTE | 2021-01-06 08:10 | W.PM.OPSUD ---
Surgery/Procedure H&P Update DATE OF PROCEDURE: January 06, 2021 DATE H&P PERFORMED: 12/22/20 H&P UPDATE INFORMATION: I have reviewed H&P completed within last 30 days, I have examined patient prior to procedure and No changes to prior documentation PREOP DIAGNOSIS: Port-A-Cath removal PLANNED PROCEDURE: Operation Date: 01/06/21 07:50 Proposed Procedures p Portacath Removal [id number](Not Applicable) - Isaac Thakkar MD
[2021-01-06] MEDS: sodium chloride 0.9% 1,000 ML 30 ML IV (08:12)
[2021-01-06] MEDS: lidocaine 1% INJ 20 mL SUBCUT (09:18)
--- NOTE | 2021-01-06 09:38 | PM.OP ---
Operative Report Date of procedure: January 06, 2021 Pre-op Diagnosis: Port-A-Cath removal Post-op Diagnosis: Port a cath left subclavian vein Procedure Done: Removal of Port-A-Cath left subclavian vein Surgeon: Isaac Thakkar Anesthesia: Local Condition: stable Disposition: PACU Procedure: Patient was taken to the operating room and her right chest was prepped and draped in a sterile manner. 20 mL of 1% lidocaine with 0.5% Marcaine was infiltrated around the MediPort and catheter in the left subclavian vein. Using a 15 blade the previous incision was opened, the subcutaneous tissue was divided using electrocautery and MediPort along the catheter was dissected free from the surrounding subcutaneous tissue and removed entirely. The capsule around the port was excised. The wound was irrigated with saline, hemostasis ensured with electrocautery and subcutaneous tissue was approximated using 3-0 Vicryl suture and skin was closed using running subcuticular 4-0 Monocryl suture. 4x4 and sterile dressings were used as a pressure dressing. The patient was transferred to the recovery room in stable condition. The MediPort was sent to pathology
== END 2021-01-06 10:11 | disposition home or self-care (01) ==
PROVIDERS: Visit Provider Surgery
PROC: (CPT 36589; principal; 2021-01-06 07:40)
DX: Z45.2 Encounter for adjustment and management of vascular access device (principal); Z79.01 Long term (current) use of anticoagulants; I48.91 Unspecified atrial fibrillation; Z95.0 Presence of cardiac pacemaker; E78.5 Hyperlipidemia, unspecified; E03.9 Hypothyroidism, unspecified; E55.9 Vitamin D deficiency, unspecified; Z87.891 Personal history of nicotine dependence
CPT/HCPCS: 36590; J3490; J7030

== ENCOUNTER 2021-01-11 11:20 | Outpatient (CLI) | payer MEDICARE, OTHER, SELFPAY ==
--- NOTE | 2021-01-11 11:35 | XR_ITS ---
WS: [id number] RIGHT ANKLE: 3 VIEW(S) TECHNIQUE: AP, oblique(s) and lateral. HISTORY: ACUTE RIGHT ANKLE PAIN COMPARISON: 12/31/2020 Small osseous densities distal to the fibula. These tiny avulsion fractures may have been acute on th e prior study. They are slightly more sclerotic suggesting healing. There is adjacent soft tissue esa ma over the lateral malleolus. No joint effusion or widening of the ankle mortise. No significant degenerative changes at the joint spaces. No soft tissue abnormality. XR/XR ankle RT min 3V* [id number] IMPRESSION: 1. Small avulsion fractures at the distal fibula may have been acute on the pr ior study. There are slightly more sclerotic today suggesting healing. 2. Persistent moderate soft tissue edema over the lateral malleolus.
== END 2021-01-11 11:21 | disposition home or self-care (01) ==
LOC: RADWPI 11:32
PROVIDERS: Visit Provider Nurse Practitioner Family
DX: M25.571 Pain in right ankle and joints of right foot (principal); S82.831A Other fracture of upper and lower end of right fibula, initial encounter for closed fracture; X58.XXXA Exposure to other specified factors, initial encounter; R60.0 Localized edema
CPT/HCPCS: 73610

== ENCOUNTER 2021-01-13 11:01 | Outpatient (CLI) | payer MEDICARE, OTHER, SELFPAY ==
--- NOTE | 2021-01-13 11:00 | USCV_ITS ---
Ayaka Butcher Age: 75 Gender: F : 1945 Exam Date: 01/13/2021 11:15 Ordering Phys: Amilcar Kinsey DPM Technologist: DAVID [place]am [place] [facility] [place]: SWELLING AND BRUISING HISTORY: Lower extremity swelling. PROCEDURES: Venous duplex imaging was performed in only the right lower extremity. The following venous structures were evaluated: common femoral vein, profunda vein, proximal portion of the greater saphenous vein, superficial femoral vein, and the popliteal vein. In addition, the posterior tibial and peroneal trunk were evaluated. Serial compression, augmentation maneuvers, and spectral Doppler flow evaluation were performed. FINDINGS: Normal 2-D Doppler and augmentation and compressibility throughout the lower extremity venous structures. Additional imaging through the proximal calf veins also reveals no thrombus. Limited evaluation of the greater saphenous vein is patent with no thrombus.. CONCLUSIONS No evidence of right lower extremity DVT. Odin Cardozo MD (Electronically Signed) Final Date: 13 Jan 2021 17:52 S
== END 2021-01-13 11:02 | disposition home or self-care (01) ==
LOC: RAD 11:06
PROVIDERS: PCP Nurse Practitioner Family; Visit Provider Podiatrist Foot & Ankle Surgery
DX: M79.89 Other specified soft tissue disorders (principal); S80.11XA Contusion of right lower leg, initial encounter; X58.XXXA Exposure to other specified factors, initial encounter
CPT/HCPCS: 93971

== ENCOUNTER → 2021-02-15 13:24 | Outpatient (BNVA) | payer MEDICARE, OTHER, SELFPAY | PROVIDERS: PCP Nurse Practitioner Family; Visit Provider Podiatrist Foot & Ankle Surgery | DX: M79.672 Pain in left foot (principal); S82.831A Other fracture of upper and lower end of right fibula, initial encounter for closed fracture; X58.XXXA Exposure to other specified factors, initial encounter | CPT/HCPCS: 73610; 73630 ==

== ENCOUNTER 2021-03-29 15:16 | Outpatient (CLI) | payer MEDICARE, OTHER, SELFPAY ==
--- NOTE | 2021-03-29 15:43 | XR_ITS ---
WS: [id number] PA and lateral chest, 03/29/2021 Clinical Data: VIRAL ILLNESS Comparison: Portable chest, 12/29/2017. Findings: There is cardiomegaly. No pneumonia or pneumothorax is present. The single lead pacemaker r emains in the same position. The aortic arch and descending aorta show calcification and tortuosity. No nodules, masses or effusions are seen. XR/XR chest 2V* [id number] Impression: Cardiomegaly and atherosclerosis.
== END 2021-03-29 15:17 | disposition home or self-care (01) ==
PROVIDERS: PCP Nurse Practitioner Family; Visit Provider Nurse Practitioner Family
DX: B34.9 Viral infection, unspecified (principal); I51.7 Cardiomegaly; I70.90 Unspecified atherosclerosis
CPT/HCPCS: 71046

== ENCOUNTER 2021-06-21 12:05 | Outpatient (CLI) | payer MEDICARE, OTHER, SELFPAY ==
[2021-06-21 13:01] LABS: Basophils # 0.1 10^3/uL (0.0-0.1); Basophils % 0.9 %; Eosinophils # 0.1 10^3/uL (0.0-0.8); Eosinophils % 1.5 %; Hematocrit 35.4 % (37.0-47.0); Lymphocytes # 1.7 10^3/uL (0.8-4.8); Mean Corpuscular HGB Conc 31.1 g/dL (30.0-36.0); Mean Corpuscular Hemoglobin 25.1 pg (28.0-34.0); Mean Corpuscular Volume 80.8 fl (81-99); Mean Platelet Volume 11.3 fL (7.4-10.4); Monocytes # 0.9 10^3/uL (0.2-0.9); Monocytes % 12.7 %; Neutrophils # 3.99 10^3/uL (1.8-7.7); Neutrophils % 59.6 %; Nucleated Red Blood Cells % 0 %; Platelet Count 329 10^3/cmm (130-400); Red Blood Count 4.38 10^6/uL (4.1-5.3); Red Cell Distribution Width 18.5 % (12.1-15.1); White Blood Count 6.7 10^3/uL (4.0-10.0)
[2021-06-21 13:24] LABS: Alanine Aminotransferase 21 U/L (0-33); Albumin Level 4.3 g/dL (3.5-5.2); Alkaline Phosphatase 63 IU/L (35-105); Anion Gap 15.7 (5-19); Aspartate Amino Transferase 33 U/L (0-32); Blood Urea Nitrogen 11 mg/dL (8-23); Calcium 9.1 mg/dL (8.5-10.5); Carbon Dioxide 27 mmol/L (22-29); Chloride 95 mmol/L (98-107); Globulin 2.7 g/dL (1.3-4.6); Glucose 99 mg/dL (65-115); Osmolality Calculated 277 mOsm/kg (285-295); Potassium 3.7 mmol/L (3.5-5.1); Sodium 134 mmol/L (136-145); Total Bilirubin 0.9 mg/dL (0.15-1.2)
[2021-06-21] MEDS: denosumab 60 mg SDV SUBCUT (14:10)
[2021-06-21 14:37] LABS: Iron 33 ug/dL (37-145); Percent Saturation 6.1 % (20-50); Total Iron Binding Capacity 534 mcg/dl; Unsaturated Iron Binding 501 ug/dL (112-347)
--- NOTE | 2021-06-21 18:06 | ONC FU_ITS ---
Dr. Smith Patient Follow-Up Note Patient: Ayaka Butcher Unit #: [id number]: 1945 Dicatated By: Anthony Smith M.D.Date of Visit:Jun 21, 2021 Onc Med Follow-up/Prog Note Chief Complaint: Breast cancer. History of Present Illness: This is a 75 year-old woman with grade 1 infiltrating ductal carcinoma the right breast, stage IIA (T1c, N1, M0), ER/LA positive and HER-2/leno negative. She had presented with a lump in the right breast. She underwent excisional biopsy in August 2004. Pathology showed grade 1 infiltrating ductal carcinoma measuring 1.4 cm in maximum diameter. The tumor was ER and LA positive, both at 90%. It was negative for overexpression of HER-2/leno. There was microscopic involvement in one sentinel axillary lymph node. A subsequent axillary lymph node sampling showed no involvement in an additional 12 lymph nodes. She was given adjuvant chemotherapy with 3 cycles of FEC and 3 cycles of Taxotere. She completed chemotherapy in February 2005. She was then given radiation to the right breast, which she completed in May of 2005. She also was given adjuvant hormonal therapy with Femara, which she continued until May of 2010, at which point she had completed 5 years of treatment. 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 Thus far there has been no evidence of recurrence of her breast cancer. Her other medical illnesses include hypertension, hypercholesterolemia, hypothyroidism, and asthma. She has chronic atrial fibrillation, for which she is on anticoagulation with Pradaxa. She has degenerative arthritis and osteoporosis. She has been on treatment with Prolia. She also has had some anxiety/depression. She underwent right total knee arthroplasty in August of 2011. She subsequently had surgery on her left foot. She had arthroscopic surgery on her right shoulder in November 2014. She underwent placement of a pacemaker in 2016. In December 2017 she underwent ORIF for a traumatic right distal femur intercondylar periprosthetic fracture. She has a history of smoking 1 pack of cigarettes daily, but she quit smoking in 1997. INTERIM HISTORY: At her follow-up visit on 11/22/2018 she was noted to have 2 small nodules in the right breast. Her diagnostic right breast mammogram and ultrasound from 11/09/2018 was BI-RADS category 4A, suspicious. Findings included a focus of increased echotexture at the 10 o'clock position of the right breast for which biopsy was recommended. Ultrasound-guided needle biopsy of the right breast was then performed on 11/27/2018. Pathology showed dense eosinophilic connective tissues with no diagnostic tumor or significant atypia identified. It was noted that the tissue focally resembled benign cartilage or cortical bone. With those findings she continued observation/expectant management for the breast cancer. She also continued treatment with Prolia for the osteoporosis. Her repeat bone density on 04/29/2020 showed osteopenia with T score -1.8 in the left femoral neck and -1.6 in the right femoral neck. The lumbar spine showed normal T score 1.6. She is seen for a follow-up visit. She says her energy has not been very good. Her activity has been limited by shortness of breath, and she also has had ongoing problems with swelling. She is able to do light work. ECOG score is 1. Her appetite is good. She has no fever, night sweats, or hot flashes. She has some allergy related sinus symptoms. She does not have resting dyspnea or cough. She occasionally has a little bit of chest pain. Recently she has been having a lot of nausea and she she has been having abdominal pain, mainly in the right upper quadrant area. She is also been having diarrhea. She has frequent urination with her diuretic. She has some ongoing neuropathy symptoms in the lower extremities, including tingling and burning. She currently is not having significant joint or bone pain. Medications: Azelastine HCl Solution Nasal daily PRN, Calcium + D Tablet Oral daily, Dexilant 1 Capsule (of 60 mg) Capsule Delayed Release Oral daily, Furosemide 2 Tablet (of 20 mg) Oral daily, Lipitor 1 (10 mg) Tablet Oral at bedtime, Lyrica 1 Capsule (of 225 mg) Oral b.i.d., Metoprolol Tartrate 1.5 Tablet (of 25 mg) Oral daily, Potassium Chloride Alexa ER 1 Tablet (of 10 meq) Tablet, controlled release Oral daily, Synthroid 1 (100 mcg) Tablet Oral daily, Taztia XT 1 Capsule (of 90 mg) Capsule SR 24 HR Oral daily, TraMADol HCl 1 - 2 Tablet (of 50 mg) Oral q 6 hours PRN, Ventolin HFA 1 puff(s) (of 108 (90 base) mcg/act) Aerosol, solution Inhalation four times a day PRN, Vitamin D3 1 Tablet Oral daily, Voltaren 4 G (of 1 %) Gel (jelly) Transdermal b.i.d. Allergies: CILLINS and PAPER TAPE. Vital Signs: Performed on Jun 21, 2021 14:26 Height - 63.00 in Weight - 142.4 lbs (HIGH) BSA - 1.67 sq.m BMI - 25.23 Temperature - 95.6 F (LOW) Pulse - 81 /min Respiration - 18 /min BP - 93/65 mm(hg) O2 Sat - 99 % Pain - 3 Fatigue - 7 Physical Examination: Constitutional - She looks pretty good generally, Eyes - Sclerae nonicteric. Conjunctivae clear, ENMT - No lesions noted in the oral cavity, Hematologic/Lymphatic - No cervical, clavicular, or axillary adenopathy, Respiratory - Lungs sound clear with diminished air movement bilaterally, Cardiovascular - Heart rhythm is irregular. There is a II/ systolic murmur. There is no gallop or rub noted, Abdomen - Mildly distended and tympanic. There is tenderness in the right upper quadrant. Liver and spleen are not enlarged. There is no abdominal mass or ascites noted and there is no inguinal adenopathy, Extremities - Mild edema, Neurologic - No focal neurologic deficits noted. Lab/Imaging: Test performed on Jun 21, 2021 12:20 Iron 33 mcg/dL Sodium 134 mmol/L Iron Binding Capacity (TIBC) 534 mcg/dl Potassium 3.7 mmol/L % Iron Saturation 6.1 % Chloride 95 mmol/L CO2 27 mmol/L UIBC 501 mcg/dL Anion Gap 15.7 BUN 11 mg/dL Creatinine 0.9 mg/dL Cr Clearance (Est) 53.38 mL/min Glucose 99 mg/dL Osmolality - Calculated 277 mOsm/kg Calcium 9.1 mg/dL Protein, Total 7.0 g/dL Albumin 4.3 g/dL Globulin 2.7 g/dL Bilirubin, Total 0.9 mg/dL ALT (SGPT) 21 U/L AST (SGOT) 33 U/L Alkaline Phosphatase 63 IU/L WBC 6.7 10 3/uL RBC 4.38 10 6/uL HGB 11.0 g/dL HCT 35.4 % MCV 80.8 fl MCH 25.1 pg MCHC 31.1 g/dL RDW 18.5 % Platelet Count 329 10 3/cmm MPV 11.3 fL Neutrophils 3.99 10 3/uL Lymphocytes 1.7 10 3/uL Monocytes 0.9 10 3/uL Eosinophils 0.1 10 3/uL Basophils 0.1 10 3/uL Neutrophil % 59.6 % Lymphocyte % 25.0 % Monocyte % 12.7 % Eosinophil % 1.5 % Basophils % 0.9 % NRBC % 0 % Problem List: 1. Grade 1 infiltrating ductal carcinoma the right breast, stage IIA, ER/LA positive and HER-2/leno negative. She underwent lumpectomy/axillary node sampling in August 2004. 2. 2. During followup she was found to have osteoporosis, for which she has been on treatment with Prolia and calcium/vitamin D supplements. 3. She has had iron deficiency anemia. 3. Hypertension. 4. Hyperlipidemia. 5. Chronic atrial fibrillation, on anticoagulation with Pradaxa. 6. She underwent placement of permanent pacemaker in 2017. 7. Hypothyroidism. 8. Asthma. 9. Obstructive sleep apnea. 10. Degenerative arthritis. 11. In December 2017 she underwent ORIF for a traumatic distal right femur intracondylar periprosthetic fracture. 12. Anxiety/depression. Problems Addressed with this Encounter and Plan: 1. Patient with grade 1 infiltrating ductal carcinoma the right breast, stage IIA, ER/LA positive and HER-2/leno negative. She underwent lumpectomy/axillary node sampling in August 2004. She was given adjuvant chemotherapy with FEC followed by Taxotere, completed in February 2005. She completed radiation to the right breast in May 2005. She continued adjuvant hormonal therapy with Femara until May 2010, at which point she had completed 5 years of treatment. She was then followed expectantly. During follow-up she has had persistent neuropathy symptoms from the chemotherapy. In November 2018 she underwent ultrasound-guided needle biopsy of the right breast for suspicious changes on her surveillance mammogram, but pathology showed no malignancy. Overall, she has been doing well clinically with no evidence of recurrence of the breast cancer. She remains on observation/expectant management for the breast cancer. 2. In the past she had evidence of osteoporosis, for which she has been on treatment with Prolia. On her repeat DEXA scan in April 2020, her femoral neck T-scores were in the osteopenia range. As such, she continues treatment with Prolia, 60 mg by subcutaneous injection. 3. She is mildly anemic with transferrin saturation and ferritin consistent iron deficiency. She will continue her oral iron supplementation, I will schedule her for follow-up labs in 3 months. If she is not able to corrected with oral iron, she will be given the option to have parenteral iron replacement. She has recommended to restart oral iron supplementation. If she does not tolerate it or have adequate response, she will be given the option to have parenteral iron replacement with Injectafer. 4. She has been having nausea, abdominal pain, and diarrhea. She will be scheduled for CT of the abdomen/pelvis. As she is also iron deficient, I will have her bring in a stool sample for FIT. She will have further evaluation as indicated. Signed By: Anthony Smith M.D. <<Signature on File>>
== END 2021-06-21 12:06 | disposition home or self-care (01) ==
LOC: ONCMED 12:09
PROVIDERS: PCP Nurse Practitioner Family; Visit Provider Internal Medicine Medical Oncology
DX: Z08 Encounter for follow-up examination after completed treatment for malignant neoplasm (principal); Z85.3 Personal history of malignant neoplasm of breast; M81.0 Age-related osteoporosis without current pathological fracture; D50.9 Iron deficiency anemia, unspecified; I10 Essential (primary) hypertension; E78.5 Hyperlipidemia, unspecified; I48.20 Chronic atrial fibrillation, unspecified; Z79.01 Long term (current) use of anticoagulants; Z95.0 Presence of cardiac pacemaker; E03.9 Hypothyroidism, unspecified; J45.909 Unspecified asthma, uncomplicated; G47.33 Obstructive sleep apnea (adult) (pediatric); M19.90 Unspecified osteoarthritis, unspecified site; F41.9 Anxiety disorder, unspecified; F32.9 Major depressive disorder, single episode, unspecified; Z79.899 Other long term (current) drug therapy; Z92.3 Personal history of irradiation; Z92.21 Personal history of antineoplastic chemotherapy
CPT/HCPCS: 36415; 80053; 83540; 83550; 85025; 96372; 99214; J0897

== ENCOUNTER 2021-06-23 13:48 | Outpatient (CLI) | payer MEDICARE, OTHER, SELFPAY | END 2021-06-23 13:49 | disposition home or self-care (01) | PROVIDERS: PCP Nurse Practitioner Family; Visit Provider Internal Medicine Medical Oncology | DX: C50.211 Malignant neoplasm of upper-inner quadrant of right female breast (principal); Z17.0 Estrogen receptor positive status [ER+]; M81.0 Age-related osteoporosis without current pathological fracture; D50.9 Iron deficiency anemia, unspecified; E03.9 Hypothyroidism, unspecified; E78.5 Hyperlipidemia, unspecified; F41.9 Anxiety disorder, unspecified; F32.9 Major depressive disorder, single episode, unspecified; J45.909 Unspecified asthma, uncomplicated | CPT/HCPCS: 82274 ==

== ENCOUNTER 2021-06-28 10:03 | Outpatient (CLI) | payer MEDICARE, OTHER, SELFPAY ==
--- NOTE | 2021-06-28 10:12 | CT_ITS ---
WS: [id number] CT ABDOMEN AND PELVIS WITH CONTRAST HISTORY: BREAST CANCER, RIGHT UPPER QUADRANT ABDOMINAL PAIN TECHNIQUE: Imaging performed of the abdomen and pelvis with IV contrast. Single phase imaging of the abdomen. Coronal and sagittal reformats are submitted. All CT scans at [facility] use at [address] one of these dose optimization techniques: automated exposure control; mA and/or kV adjustment per patient size (includes targeted exams where dose is matched to clinical indication); or iterative re construction. IV CONTRAST: Omnipaque 300; 95 mL IV. Oral contrast: Yes. DLP: 1254.89 mGycm COMPARISON: 09/28/2015 Lower thorax: Linear atelectasis at the LEFT lung base. Markedly enlarged RIGHT heart chambers. There is massive dilatation of the RIGHT atrium and to a lesser extent the ventricle. There is mass effect upon a small caliber LEFT ventricle. No effusion. There is marked enlargement of the IVC and hepatic veins. Marked hepatic congestion. Very large hiatal hernia. Liver/biliary system: As compared to the prior study from 2016 there has been a moderate increase in size of the liver. Heterogeneous appearance of the liver parenchyma. There are a few areas of enhance ment which I believe are all related to the dilated hepatic veins. No bile duct dilatation. No portal vein thrombosis. Surface of the liver is slightly irregular. Gallbladder: Status post cholecystectomy. Pancreas: Normal size pancreas and pancreatic duct. No adjacent inflammation. Spleen: Normal size spleen with granulomata. Adrenal glands: Normal. Right kidney: Mild atrophy of the RIGHT kidney. Focal cortical thinning upper pole. No hydronephrosis or mass. Left kidney: Mild perinephric stranding with no obstruction. Aorta: Mild atherosclerosis with no aneurysm. Very anatomy of the celiac axis. Lymphadenopathy: There are several small but new lymph nodes near the celiac axis measuring up to 7.2 mm in diameter. Additional small mesenteric and RIGHT lower quadrant lymph nodes. No retroperitoneal adenopathy. Free fluid: Small amount of free fluid within the pelvis. There is small amount of fluid tracking brayan ng the paracolic gutters. GI tract: Mild mucosal edema near the cecum, ascending colon to the descending colon. There are numer ous diverticula in the sigmoid with no obstruction or acute diverticulitis appreciated. Abdominal wall: Unremarkable abdominal wall. No hernia. Mild soft tissue anasarca. Pelvis: Small amount of free fluid in the pelvis. Urinary bladder is minimally distended. Mild soft t issue anasarca. Bones: Mild increase in the lumbar lordosis. Disc space narrowing at L4-5 and L5-S1. Bone island LEFT femoral neck. CT/CT abdomen pelvis w con* [id number] IMPRESSION: 1. Severe RIGHT heart enlargement with compression upon the LEFT heart. 2. Marked hepatic congestion probably secondary to the RIGHT heart failure. Li mata is enlarged and edematous with markedly dilated hepatic veins which is new since 09/28/2015. 3. Soft tissue anasarca. 4. Prior cholecystectomy. 5. Small amount of ascites in the pelvis may be related to the hepatic congest ion. 6. Sigmoid diverticulosis without acute diverticulitis. 7. Heterogeneous appearance of the liver is probably all due to hepatic venous congestion. There are also changes suspicious for cirrhosis. Suggest follow-up ultrasound of the liver to be sure there are no underlying subtle lesions. 8. Indeterminate but small mesenteric and RIGHT lower quadrant lymph nodes. Ma y be related to cirrhosis. 9. Large hiatal hernia.
[2021-06-28] MEDS: iohexol 300 mg/mL 50 mL Btl PO (10:34)
[2021-06-28] MEDS: iohexol 300 mg/mL 100 mL Btl IV (12:02)
== END 2021-06-28 10:04 | disposition home or self-care (01) ==
PROVIDERS: PCP Nurse Practitioner Family; Visit Provider Internal Medicine Medical Oncology
DX: C50.211 Malignant neoplasm of upper-inner quadrant of right female breast (principal); R10.11 Right upper quadrant pain; K44.9 Diaphragmatic hernia without obstruction or gangrene; K57.30 Diverticulosis of large intestine without perforation or abscess without bleeding; R60.1 Generalized edema; I51.7 Cardiomegaly; Z85.3 Personal history of malignant neoplasm of breast
CPT/HCPCS: 74177; 77066; Q9967

== ENCOUNTER 2021-06-28 14:03 | Outpatient (CLI) | payer MEDICARE, OTHER, SELFPAY ==
--- NOTE | 2021-06-28 | MM_ITS ---
WS: [id number] BILATERAL DIGITAL DIAGNOSTIC MAMMOGRAM MAMMOGRAPHY WITH CAD COMPARISON: June 26, 2020 TECHNIQUE: Bilateral CC, MLO, and ML views. FINDINGS: Scattered fibroglandular densities bilaterally. Punctate and lucent centered calcifications. Prior po stoperative changes lumpectomy right breast with parenchymal scarring and volume loss. Biopsy marker upper outer right breast. 5 mm ovoid density along the posterior nipple line stable since 2017 No suspicious focal mass, asymmetry, calcifications, or architectural distortion. No evidence of elvi gnancy. MM/[place] [id number] IMPRESSION: BI-RADS: 2-Benign FOLLOW UP: 1 Year Follow-up Recommend return to annual diagnostic mammography.
== END 2021-06-28 14:04 | disposition home or self-care (01) ==
PROVIDERS: PCP Nurse Practitioner Family; Visit Provider Internal Medicine Medical Oncology
DX: Z85.3 Personal history of malignant neoplasm of breast (principal)
CPT/HCPCS: 77066

== ENCOUNTER 2021-07-13 14:25 | Outpatient (CLI) | payer MEDICARE, OTHER, SELFPAY ==
[2021-07-13 14:56] LABS: Basophils # 0.1 10^3/uL (0.0-0.1); Basophils % 0.8 %; Eosinophils # 0.1 10^3/uL (0.0-0.8); Eosinophils % 1.8 %; Hematocrit 36.9 % (37.0-47.0); Hemoglobin 11.5 g/dL (11.5-15.3); Lymphocytes % 29.6 %; Mean Corpuscular HGB Conc 31.2 g/dL (30.0-36.0); Mean Corpuscular Hemoglobin 25.3 pg (28.0-34.0); Mean Corpuscular Volume 81.1 fl (81-99); Mean Platelet Volume 10.7 fL (7.4-10.4); Monocytes # 0.8 10^3/uL (0.2-0.9); Monocytes % 12.2 %; Neutrophils # 3.67 10^3/uL (1.8-7.7); Neutrophils % 55.4 %; Nucleated Red Blood Cells % 0 %; Platelet Count 317 10^3/cmm (130-400); Red Blood Count 4.55 10^6/uL (4.1-5.3); Red Cell Distribution Width 18.8 % (12.1-15.1); White Blood Count 6.6 10^3/uL (4.0-10.0)
[2021-07-13 15:09] LABS: Iron 189 ug/dL (37-145); Percent Saturation 38.8 % (20-50); Total Iron Binding Capacity 486 mcg/dl; Unsaturated Iron Binding 297 ug/dL (112-347)
== END 2021-07-13 14:26 | disposition home or self-care (01) ==
PROVIDERS: PCP Nurse Practitioner Family; Visit Provider Nurse Practitioner
DX: D50.9 Iron deficiency anemia, unspecified (principal)
CPT/HCPCS: 36415; 83540; 83550; 85025

== ENCOUNTER 2021-07-15 06:35 | Outpatient (CLI) | payer MEDICARE, OTHER, SELFPAY ==
--- NOTE | 2021-07-18 13:31 | ONC FU_ITS ---
Dr. Smith Patient Follow-Up Note Patient: Ayaka Butcher Unit #: [id number]: [id number] Dicatated By: Anthony Smith M.D.Date of Visit:Jul 15, 2021 Onc Med Follow-up/Prog Note Chief Complaint: Breast cancer. History of Present Illness: This is a 75 year-old woman with grade 1 infiltrating ductal carcinoma the right breast, stage IIA (T1c, N1, M0), ER/IL positive and HER-2/leno negative. She had presented with a lump in the right breast. She underwent excisional biopsy in August 2004. Pathology showed grade 1 infiltrating ductal carcinoma measuring 1.4 cm in maximum diameter. The tumor was ER and IL positive, both at 90%. It was negative for overexpression of HER-2/leno. There was microscopic involvement in one sentinel axillary lymph node. A subsequent axillary lymph node sampling showed no involvement in an additional 12 lymph nodes. She was given adjuvant chemotherapy with 3 cycles of FEC and 3 cycles of Taxotere. She completed chemotherapy in February 2005. She was then given radiation to the right breast, which she completed in May of 2005. She also was given adjuvant hormonal therapy with Femara, which she continued until May of 2010, at which point she had completed 5 years of treatment. 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 There was no evidence of recurrence of her breast cancer. At her follow-up visit on 11/22/2018 she was noted to have 2 small nodules in the right breast. Her diagnostic right breast mammogram and ultrasound from 11/09/2018 was BI-RADS category 4A, suspicious. Findings included a focus of increased echotexture at the 10 o'clock position of the right breast for which biopsy was recommended. Ultrasound-guided needle biopsy of the right breast was then performed on 11/27/2018. Pathology showed dense eosinophilic connective tissues with no diagnostic tumor or significant atypia identified. It was noted that the tissue focally resembled benign cartilage or cortical bone. With those findings she continued observation/expectant management for the breast cancer. Her other medical illnesses include hypertension, hypercholesterolemia, hypothyroidism, and asthma. She has chronic atrial fibrillation, for which she is on anticoagulation with Pradaxa. She has degenerative arthritis and osteoporosis. She has been on treatment with Prolia. She also has had some anxiety/depression. She underwent right total knee arthroplasty in August of 2011. She subsequently had surgery on her left foot. She had arthroscopic surgery on her right shoulder in November 2014. She underwent placement of a pacemaker in 2016. In December 2017 she underwent ORIF for a traumatic right distal femur intercondylar periprosthetic fracture. She has a history of smoking 1 pack of cigarettes daily, but she quit smoking in 1997. INTERIM HISTORY: Her repeat bone density on 04/29/2020 showed osteopenia with T score -1.8 in the left femoral neck and -1.6 in the right femoral neck. The lumbar spine showed normal T score 1.6. She continued treatment with Prolia. At her scheduled visit in May 2021 she was mildly anemic with hemoglobin 11.0 g and hematocrit 35.4%. Her red cell indices were mildly hypochromic/microcytic and her serum iron studies showed low transferrin saturation at 6.1%, consistent with iron deficiency. She began on oral iron supplementation with ferrous sulfate. She also brought in a stool sample for IFOB, not did come back positive. Her CT abdomen/pelvis on 06/28/2021 showed severe right heart enlargement with compression on the left heart. There was associated marked hepatic congestion as well as soft tissue anasarca. A small amount of ascites was noted in the pelvis. Indeterminate but small mesenteric and right lower quadrant lymph nodes were felt to be most likely related to cirrhosis. There was evidence of a large hiatal hernia. She is seen for a follow-up visit. She continues to complain that her energy is not very good. She is able to do some light work. ECOG score is 1. She has good appetite. She has no fever or night sweats. She has not had sore throat or cough. She does get short of breath with activity. She does not complain of chest pain. She has a little bit of acid reflux. She is having black stools and constipation with the iron supplement. Bladder function has been adequate with medication. She has ongoing problems with her arthritis, and she also has neuropathy pain. Medications: Azelastine HCl Solution Nasal daily PRN, Calcium + D Tablet Oral daily, Dexilant 1 Capsule (of 60 mg) Capsule Delayed Release Oral daily, Ferrous Sulfate 1 (325 (65 fe) mg) Tablet Oral daily, Furosemide 2 Tablet (of 20 mg) Oral daily, Lipitor 1 (10 mg) Tablet Oral at bedtime, Lyrica 1 Capsule (of 225 mg) Oral b.i.d., Metoprolol Tartrate 1.5 Tablet (of 25 mg) Oral daily, Potassium Chloride Alexa ER 1 Tablet (of 10 meq) Tablet, controlled release Oral daily, Synthroid 1 (100 mcg) Tablet Oral daily, Taztia XT 1 Capsule (of 90 mg) Capsule SR 24 HR Oral daily, TraMADol HCl 1 - 2 Tablet (of 50 mg) Oral q 6 hours PRN, Ventolin HFA 1 puff(s) (of 108 (90 base) mcg/act) Aerosol, solution Inhalation four times a day PRN, Vitamin D3 1 Tablet Oral daily, Voltaren 4 G (of 1 %) Gel (jelly) Transdermal b.i.d. Allergies: CILLINS and PAPER TAPE. Vital Signs: Performed on Jul 15, 2021 09:43 Height - 63.00 in Weight - 130.6 lbs (LOW) BSA - 1.61 sq.m BMI - 23.13 Temperature - 97.0 F (LOW) Pulse - 88 /min Respiration - 20 /min BP - 120/84 mm(hg) O2 Sat - 96 % Pain - 2 Fatigue - 4 Physical Examination: Constitutional - She looks pretty good generally, Eyes - Sclerae nonicteric. Conjunctivae clear, ENMT - No lesions noted in the oral cavity, Hematologic/Lymphatic - No cervical, clavicular, or axillary adenopathy, Respiratory - Lungs sound clear with diminished air movement bilaterally, Cardiovascular - Heart rhythm is irregular. There is a II/ systolic murmur. There is no gallop or rub noted, Abdomen - Soft. Liver and spleen are not enlarged. There is no abdominal mass or ascites noted and there is no inguinal adenopathy, Extremities - No edema, Neurologic - No focal neurologic deficits noted. Lab/Imaging: CBC shows hemoglobin 11.5 g, white blood cell count 6600, and platelet count 317,000. Her serum iron studies showed normal transferrin saturation at 38.8%. Problem List: 1. Grade 1 infiltrating ductal carcinoma the right breast, stage IIA, ER/IL positive and HER-2/leno negative. She underwent lumpectomy/axillary node sampling in August 2004. 2. 2. During followup she was found to have osteoporosis, for which she has been on treatment with Prolia and calcium/vitamin D supplements. 3. She has had iron deficiency anemia. 3. Hypertension. 4. Hyperlipidemia. 5. Chronic atrial fibrillation, on anticoagulation with Pradaxa. 6. She underwent placement of permanent pacemaker in 2016. 7. Hypothyroidism. 8. Asthma. 9. Obstructive sleep apnea. 10. Degenerative arthritis. 11. In December 2017 she underwent ORIF for a traumatic distal right femur intracondylar periprosthetic fracture. 12. Anxiety/depression. Problems Addressed with this Encounter and Plan: 1. Patient with grade 1 infiltrating ductal carcinoma the right breast, stage IIA, ER/IL positive and HER-2/leno negative. She underwent lumpectomy/axillary node sampling in August 2004. She was given adjuvant chemotherapy with FEC followed by Taxotere, completed in February 2005. She completed radiation to the right breast in May 2005. She continued adjuvant hormonal therapy with Femara until May 2010, at which point she had completed 5 years of treatment. She was then followed expectantly. During follow-up she has had persistent neuropathy symptoms from the chemotherapy. In November 2018 she underwent ultrasound-guided needle biopsy of the right breast for suspicious changes on her surveillance mammogram, but pathology showed no malignancy. Overall, she has been doing well clinically with no evidence of recurrence of the breast cancer. She remains on observation/expectant management for the breast cancer. 2. At her follow-up visit in May 2021 she was mildly anemic with serum iron studies and ferritin consistent iron deficiency. She was found to have positive stool IFOB, and she is scheduled to have further GI evaluation with Dr. Saravia. In the meantime, for now she prefers to just continue with oral iron supplementation, though she has having some constipation with it, and thus far she remains mildly anemic. Ultimately, she may require parenteral iron replacement. 3. On her CT abdomen/pelvis the right heart was noted to be markedly enlarged, and there was associated hepatic congestion. Those results have been forwarded to her artillery meteorological man. Signed By: Anthony Smith M.D. <<Signature on File>>
== END 2021-07-15 06:36 | disposition home or self-care (01) ==
LOC: ONCMED 06:35
PROVIDERS: PCP Nurse Practitioner Family; Visit Provider Internal Medicine Medical Oncology
DX: Z08 Encounter for follow-up examination after completed treatment for malignant neoplasm (principal); Z85.3 Personal history of malignant neoplasm of breast; Z90.11 Acquired absence of right breast and nipple; M81.0 Age-related osteoporosis without current pathological fracture; D50.9 Iron deficiency anemia, unspecified; I10 Essential (primary) hypertension; E78.5 Hyperlipidemia, unspecified; I48.20 Chronic atrial fibrillation, unspecified; Z79.01 Long term (current) use of anticoagulants; Z95.0 Presence of cardiac pacemaker; E03.9 Hypothyroidism, unspecified; J45.909 Unspecified asthma, uncomplicated; G47.33 Obstructive sleep apnea (adult) (pediatric); M19.90 Unspecified osteoarthritis, unspecified site; F41.9 Anxiety disorder, unspecified; F32.9 Major depressive disorder, single episode, unspecified; Z79.899 Other long term (current) drug therapy; Z92.21 Personal history of antineoplastic chemotherapy
CPT/HCPCS: 99214

== ENCOUNTER → 2021-07-20 14:47 | Outpatient (BNVA) | payer MEDICARE, OTHER, SELFPAY | PROVIDERS: PCP Nurse Practitioner Family; Visit Provider Internal Medicine | DX: Z01.812 Encounter for preprocedural laboratory examination (principal); D50.9 Iron deficiency anemia, unspecified; Z20.822 Contact with and (suspected) exposure to COVID-19 | CPT/HCPCS: 87635 ==

== ENCOUNTER 2021-07-26 06:37 | Day surgery (SDC) | payer MEDICARE, OTHER, SELFPAY ==
[2021-07-21 14:16] VITALS: BMI 23.0
--- NOTE | 2021-07-26 06:56 | W.PM.OPSFHP ---
Same Day Surgery H&P Indication for Procedure/HPI DATE OF PROCEDURE: July 26, 2021 CHIEF COMPLAINT/INDICATIONFOR SURGICAL PROCEDURE: Iron deficiency anemia PREOP DIAGNOSIS: Port-A-Cath removal PLANNED PROCEDRUE: Operation Date: 07/26/21 08:00 Proposed Procedures p EGD/Colon 27842 D50.9(Not Applicable) - Gerardo Saravia MD s Colonoscopy 18228 D50.9(Not Applicable) - Gerardo Saravia MD Medications/Allergies* Home Medications Medication Instructions Recorded Confirmed Type apixaban 5 mg tablet 5 mg PO BID 12/22/20 07/21/21 History atorvastatin 10 mg tablet 10 mg PO DAILY 12/22/20 07/21/21 History calcium carbonate 500 mg (1,250 1 tab PO DAILY 12/22/20 07/21/21 History mg)-vitamin D3 200 unit tablet cholecalciferol (vitamin D3) 25 25 mcg PO DAILY 12/22/20 07/21/21 History mcg (1,000 unit) capsule dexlansoprazole 60 mg 60 mg PO DAILY 12/22/20 07/21/21 History capsule,biphase delayed release diltiazem HCl 120 mg capsule,24 120 mg PO DAILY 12/22/20 07/21/21 History hr,extended release furosemide 20 mg tablet 20 mg PO DAILY 12/22/20 07/21/21 History levothyroxine 100 mcg capsule 100 mcg PO DAILY 12/22/20 07/21/21 History metoprolol succinate 25 mg 37.5 mg PO DAILY 12/22/20 07/21/21 History tablet,extended release 24 hr potassium chloride 10 mEq 10 meq PO DAILY 12/22/20 07/21/21 History capsule,extended release pregabalin 225 mg capsule 225 mg PO DAILY 12/22/20 07/21/21 History tramadol 50 mg tablet 50 mg PO Q6H PRN 12/22/20 07/21/21 History Allergies/Adverse Reactions Allergy/AdvReac Type Severity Reaction Status Date / Time oxycodone Allergy Vomiting Verified 07/21/21 14:05 Pertinent History/Comorbid Conditions* Medical History (Updated 07/20/21 @ 14:27 by Gerardo Saravia MD) Atrial fibrillation History of pacemaker Hyperlipemia Hypothyroidism Vitamin D deficiency Surgical History (Updated 01/06/21 @ 09:38 by Isaac Thakkar MD) History of cholecystectomy History of foot surgery History of lumpectomy of right breast History of total right knee replacement Port-A-Cath in place Removed Family History (Updated 12/22/20 @ 13:49 by ROLAN Chase) Denies family history of Anesthesia complication Bleeding disorder Social History Alcohol intake: never Pertinent Exam Findings alert, oriented x 3, clear to auscultation bilaterally, regular rate & rhythm, operative site marked and procedure specific exam findings Recommendations Surgery/Procedure today Coding Level of Care Code Acute Account Resolution Expert for Wisam Tyler
[2021-07-26 07:13] VITALS: BP 137/101; PULSE 90; RESP 20; TEMP 36.1; O2SAT 97
[2021-07-26] MEDS: sodium chloride 0.9% 1,000 ML 30 ML IV (07:24)
--- NOTE | 2021-07-26 07:39 | ANES.PREANE2 ---
Pre-Anesthetic Assessment Pre-Anesthetic Assessment: Height/Weight: Height 1.6 m Weight 58.967 kg Temp Pulse Resp BP Pulse Ox 97 F L 90 20 H 137/101 97 07/26/21 07:13 07/26/21 07:13 07/26/21 07:13 07/26/21 07:13 07/26/21 07:13 Preop Diagnosis: Port-A-Cath removal Proposed Procedure: Operation Date: 07/26/21 08:00 Proposed Procedures p EGD/Colon 61538 D50.9(Not Applicable) - Gerardo Saravia MD s Colonoscopy 47244 D50.9(Not Applicable) - Gerardo Saravia MD Was Beta Jannet taken within 24 hours: Yes Was Clonidine taken within 24 hours: N/A Last intake: Intake Last Liquid Date 07/25/21 Last Liquid Time 00:00 Last Solid Date 07/24/21 Last Solid Time 00:00 Social: Social History: Alcohol and No alcohol Exam: Pre-Anes Outpt Exam: alert, oriented x 3, clear to auscultation bilaterally and regular rate & rhythm Airway: Submandibular: WNL Cervical ROM: WNL MP: 2 Dentition: Chipped CV/HEM: CV/HEM: Anemia and HTN GI: GI: GERD Metabolic: Metabolic: Hyperlipidemia and Thyroid Anesthetic Plan: ASA status: 3 Anesthesia: MAC Risk of > 500 ml blood loss (7ml/kg in children): No Meds/Allergies Current Medications: Current Medications Generic Name Dose Route Start Last Admin Trade Name Freq PRN Reason Stop Dose Admin Sodium Chloride 1,000 mls @ 30 ml s/hr 07/26/21 07:00 07/26/21 07:24 Sodium Chloride 0.9% IV 07/27/21 06:59 30 mls/hr .Q24H MARIA DE JESUS Administration PFSH Anesthesia PFSH: Medical History Atrial fibrillation History of pacemaker Hyperlipemia Hypothyroidism Vitamin D deficiency Surgical History History of cholecystectomy History of foot surgery History of lumpectomy of right breast History of total right knee replacement Port-A-Cath in place Removed Family History Denies family history of Anesthesia complication Bleeding disorder Social History Alcohol intake: never Data Anesthesia Cardiac Studies: No Data to Display
[2021-07-26 08:37] VITALS: BP 89/61; PULSE 86; RESP 16; TEMP 36.5; O2SAT 94
[2021-07-26 08:47] VITALS: BP 91/51; PULSE 74; RESP 18; O2SAT 95
--- NOTE | 2021-07-26 13:43 | ANE.PACU2 ---
Inpatient post-anesthesia follow up: Airway intact: Yes Vital signs: Temperature 97.7 F Pulse Rate 74 Respiratory Rate 18 Blood Pressure 91/51 Pulse Oximetry 95 Oxygen Delivery Me thod Room Air Oxygen Flow Rate Fraction of Inspir ed Oxygen Hydration adequate: Yes Nausea and vomiting: No Pain level: 1 Mental status: Baseline
[2021-07-27 09:23] LABS: H. Pylori / CLO Test Negative
== END 2021-07-26 09:18 | disposition home or self-care (01) ==
PROVIDERS: PCP Nurse Practitioner Family; Visit Provider Internal Medicine
PROC: 0DJ08ZZ Inspection of Upper Intestinal Tract, Via Natural or Artificial Opening Endoscopic (ICD-10-PCS; CPT 43235; principal; 2021-07-26 08:00)
PROC: 0DJD8ZZ Inspection of Lower Intestinal Tract, Via Natural or Artificial Opening Endoscopic (ICD-10-PCS; CPT 45378; 2021-07-26 08:00)
DX: D50.9 Iron deficiency anemia, unspecified (principal); D12.2 Benign neoplasm of ascending colon; D12.0 Benign neoplasm of cecum; D12.3 Benign neoplasm of transverse colon; K57.30 Diverticulosis of large intestine without perforation or abscess without bleeding; K29.70 Gastritis, unspecified, without bleeding; E03.9 Hypothyroidism, unspecified; Z88.5 Allergy status to narcotic agent
CPT/HCPCS: 43239; 45385; 87077; 88305; 96360; J2704; J7030

== ENCOUNTER 2021-07-27 09:59 | Outpatient (CLI) | payer MEDICARE, OTHER, SELFPAY ==
--- NOTE | 2021-07-27 10:11 | US_ITS ---
WS: [id number] ULTRASOUND ABDOMEN CLINICAL INFORMATION: GENERALIZED ABDOMINAL PAIN COMPARISON: None. FINDINGS: Liver Size: Normal. Craniocaudal length: 14.5 cm. Echogenicity: Coarse Surface nodularity: None. Mass (size and location): None. Mildly dilated hepatic veins and IVC due to right heart failure Bile ducts Intrahepatic ducts: Mild dilatation Common bile duct diameter: 1.1 cm. Gallbladder Cholecystectomy Pancreas Normal as visualized. Spleen Splenomegaly: None. Craniocaudal length: 6.0 cm. Right kidney: Normal. Hydronephrosis: None. Size: 10.8,10.8 cm x 5.1,5.0 cm x 5.0,5.0 cm Left kidney: Normal. Hydronephrosis: None. Size: 10.7 cm x 4.9 cm x 3.8 cm. Abdominal aorta and IVC Visualized portions are normal. Ascites: None. US/US abdomen complete* [id number] IMPRESSION: 1. Coarse hepatic echotexture likely due to fatty infiltration. Recommend treva elation with liver function tests. Suggestion of early cirrhosis on the prior C T. 2. Markedly dilated hepatic veins and IVC due to right heart failure unchanged from previous. 3. Dilated common bile duct measuring 12 mm likely physiologic postcholecystec meghana. No visualized obstructing calculi 4. Prior cholecystectomy. 5. No hydronephrosis in either kidney.
== END 2021-07-27 10:00 | disposition home or self-care (01) ==
LOC: RAD 10:01
PROVIDERS: PCP Nurse Practitioner Family; Visit Provider Family Medicine
DX: R10.84 Generalized abdominal pain (principal); Z90.49 Acquired absence of other specified parts of digestive tract
CPT/HCPCS: 76700

== ENCOUNTER 2021-08-12 14:33 | Outpatient (CLI) | payer MEDICARE, OTHER, SELFPAY ==
[2021-08-12 15:38] LABS: Basophils # 0.1 10^3/uL (0.0-0.1); Eosinophils # 0.1 10^3/uL (0.0-0.8); Eosinophils % 1.4 %; Hematocrit 37.7 % (37.0-47.0); Hemoglobin 12.1 g/dL (11.5-15.3); Lymphocytes # 1.9 10^3/uL (0.8-4.8); Mean Corpuscular HGB Conc 32.1 g/dL (30.0-36.0); Mean Corpuscular Hemoglobin 26.6 pg (28.0-34.0); Mean Corpuscular Volume 82.9 fl (81-99); Mean Platelet Volume 11.3 fL (7.4-10.4); Monocytes # 0.8 10^3/uL (0.2-0.9); Monocytes % 13.6 %; Neutrophils # 3.01 10^3/uL (1.8-7.7); Neutrophils % 51.8 %; Nucleated Red Blood Cells % 0 %; Platelet Count 292 10^3/cmm (130-400); Red Blood Count 4.55 10^6/uL (4.1-5.3); Red Cell Distribution Width 21.9 % (12.1-15.1); White Blood Count 5.8 10^3/uL (4.0-10.0)
[2021-08-12 16:05] LABS: Ferritin 45 ng/mL (15-150); Iron 47 ug/dL (37-145); Percent Saturation 11.1 % (20-50); Total Iron Binding Capacity 421 mcg/dl; Unsaturated Iron Binding 374 ug/dL (112-347)
== END 2021-08-12 14:34 | disposition home or self-care (01) ==
PROVIDERS: PCP Nurse Practitioner Family; Visit Provider Internal Medicine Medical Oncology
DX: E55.9 Vitamin D deficiency, unspecified (principal); D50.9 Iron deficiency anemia, unspecified
CPT/HCPCS: 36415; 82728; 83540; 83550; 85025

== ENCOUNTER 2021-11-16 12:00 | Outpatient (CLI) | payer MEDICARE, OTHER, SELFPAY | END 2021-11-16 12:01 | disposition home or self-care (01) | LOC: SLEEP 11-17 14:29 | PROVIDERS: PCP Nurse Practitioner Family; Visit Provider Nurse Practitioner Family | DX: I27.20 Pulmonary hypertension, unspecified (principal) | CPT/HCPCS: 94762 ==

== ENCOUNTER 2021-11-25 13:42 | Outpatient (CLI) | payer MEDICARE, OTHER, SELFPAY ==
--- NOTE | 2021-11-25 13:51 | CT_ITS ---
WS: [id number] CT CHEST TECHNIQUE: Contrast enhanced CT of the chest with coronal and sagittal reformatted images. CLINICAL INFORMATION: PULMONARY HYPERTENSION COMPARISON: CTA chest 1 28,016 DLP: 544.[address] scans at [facility] use at least one of these dose optimization techniques: automated e xposure control; mA and/or kV adjustment per patient size (includes targeted exams where dose is matc hed to clinical indication); or iterative reconstruction. FINDINGS: Marked cardiomegaly with enlarged RIGHT atrium and reflux into the hepatic veins compatible with RIGH T heart failure. This is progressed compared to 2016. Recommend Correlation with echocardiography. Prior RIGHT mastectomy. Normal caliber thoracic aorta. Mild aortic calcification. Proximal main pulmo nary arteries are normal. No mediastinal or hilar lymphadenopathy. Enlarged ectatic hepatic veins. No axillary lymphadenopathy. Moderate to large esophageal hiatal hernia unchanged from previous. Adrena l glands are normal. Moderate thoracic kyphosis. Chronic anterior wedging in the mid thoracic spine. Moderate chronic emphysematous changes. No acute pulmonary infiltrates. No focal pneumonia or pleural fluid. Slight subsegmental atelectasis LEFT lower lobe. CT/CT chest w con* [id number] IMPRESSION: 1. Marked cardiomegaly with enlarged RIGHT atrium and reflux into the hepatic veins most compatible with RIGHT heart failure. This is progressed compared to 2016. Recommend Correlation with echocardiography and heart failure consultatio n. 2. Moderate to large esophageal hiatal hernia unchanged. 3. Moderate chronic emphysematous changes. No acute pulmonary infiltrates. 4. No mediastinal or hilar lymphadenopathy. 5. Moderate thoracic kyphosis.
[2021-11-25 14:49] LABS: Blood Urea Nitrogen 9 mg/dL (8-23)
== END 2021-11-25 13:43 | disposition home or self-care (01) ==
LOC: RAD 13:45
PROVIDERS: PCP Nurse Practitioner Family; Visit Provider Nurse Practitioner Family
DX: I27.20 Pulmonary hypertension, unspecified (principal); I51.7 Cardiomegaly; K44.9 Diaphragmatic hernia without obstruction or gangrene; M40.294 Other kyphosis, thoracic region
CPT/HCPCS: 71260; 82565; 84520; Q9967

== ENCOUNTER 2021-12-28 12:58 | Outpatient (CLI) | payer MEDICARE, OTHER, SELFPAY | END 2021-12-28 12:59 | disposition home or self-care (01) | LOC: RT 13:01 | PROVIDERS: PCP Nurse Practitioner Family; Visit Provider Nurse Practitioner Family | DX: I27.20 Pulmonary hypertension, unspecified (principal) | CPT/HCPCS: 94618 ==

== ENCOUNTER 2022-02-15 15:36 | Outpatient (CLI) | payer MEDICARE, OTHER, SELFPAY ==
--- NOTE | 2022-02-15 15:56 | XR_ITS ---
WS: [id number] THORACIC SPINE TECHNIQUE: AP and lateral views are performed. HISTORY: MASS OF SPINE COMPARISON: 03/03/2015 Bones are severely osteopenic. Marked increase in thoracic kyphosis. Disc spaces are narrowed through out. Endplate osteophytes at nearly all levels. Very slight anterior wedging throughout the mid thora cic vertebral bodies. No retropulsion. Pedicles are all identified. Moderate atherosclerotic plaque in the thoracic aorta. No destructive bone lesions XR/XR thoracic spine 3V* [id number] IMPRESSION: Marked increase in thoracic kyphosis with moderate spondylitic changes througho ut the thoracic spine. No acute fracture. Progression of spondylitic disease si nce the prior study.
== END 2022-02-15 15:37 | disposition home or self-care (01) ==
PROVIDERS: PCP Nurse Practitioner Family; Visit Provider Nurse Practitioner Family
DX: M48.9 Spondylopathy, unspecified (principal); M40.204 Unspecified kyphosis, thoracic region
CPT/HCPCS: 72072

== ENCOUNTER 2022-02-24 11:33 | Oncology outpatient (recurring) (ONCR) | payer MEDICARE, OTHER, SELFPAY ==
[2022-02-24 12:17] LABS: Basophils # 0.1 10^3/uL (0.0-0.1); Basophils % 1.2 %; Eosinophils # 0.1 10^3/uL (0.0-0.8); Eosinophils % 1.7 %; Hematocrit 36.5 % (37.0-47.0); Hemoglobin 12.2 g/dL (11.5-15.3); Lymphocytes # 1.8 10^3/uL (0.8-4.8); Lymphocytes % 34.4 %; Mean Corpuscular HGB Conc 33.4 g/dL (30.0-36.0); Mean Corpuscular Hemoglobin 30.3 pg (28.0-34.0); Mean Corpuscular Volume 90.8 fl (81-99); Mean Platelet Volume 10.9 fL (7.4-10.4); Monocytes # 0.7 10^3/uL (0.2-0.9); Monocytes % 13.7 %; Neutrophils # 2.52 10^3/uL (1.8-7.7); Neutrophils % 48.8 %; Nucleated Red Blood Cells % 0 %; Platelet Count 218 10^3/cmm (130-400); Red Blood Count 4.02 10^6/uL (4.1-5.3); Red Cell Distribution Width 13.5 % (12.1-15.1); White Blood Count 5.2 10^3/uL (4.0-10.0)
[2022-02-24 12:50] LABS: Iron 55 ug/dL (37-145); Percent Saturation 13.2 % (20-50); Total Iron Binding Capacity 414 mcg/dl; Unsaturated Iron Binding 359 ug/dL (112-347)
[2022-02-24] MEDS: denosumab 60 mg SDV SUBCUT (15:03)
== END 2022-02-24 23:59 | disposition home or self-care (01) ==
LOC: ONCMED 11:33
PROVIDERS: PCP Nurse Practitioner Family; Visit Provider Internal Medicine Medical Oncology
DX: Z85.3 Personal history of malignant neoplasm of breast (principal); D50.9 Iron deficiency anemia, unspecified; M81.0 Age-related osteoporosis without current pathological fracture; Z87.891 Personal history of nicotine dependence
CPT/HCPCS: 83540; 83550; 85025; 96372; 99214; J0897

== ENCOUNTER 2022-07-01 13:28 | Outpatient (CLI) | payer MEDICARE, OTHER, SELFPAY ==
--- NOTE | 2022-07-01 13:41 | MM_ITS ---
WS: [email or web address] Bilateral diagnostic 3D tomosynthesis digital mammogram, 07/01/2022 Clinical Data: breast cancer Comparison: 06/28/2021, 06/26/2020, 06/20/2019, 03/07/2019, 11/09/2018, 04/25/2018, 04/12/2017, 04/06/2016, 03/13/2015, 04/16/2014, 04/08/2013, 06/28/2011, 01/04/2011, 10/11/2010, 10/11/2007. Findings: The right breast shows post treatment changes with skin thickening, reduction in size and deformity o f the skin. There are benign calcifications in the right breast and a biopsy clip in the upper outer quadrant. The left breast shows fibroglandular tissue. The left breast shows no spiculated masses or clustered calcifications. There are no secondary signs of carcinoma. MM/[place] [id number] Impression: 1. Posttreatment changes of the right breast which are stable. 2. Negative left breast. 3. Recommend yearly mammograms. BIRADS: 2-Benign FOLLOW UP: 1 Year Follow-up The CAD piece work checker was used.
== END 2022-07-01 13:29 | disposition home or self-care (01) ==
LOC: RAD 13:29
PROVIDERS: PCP Internal Medicine; Visit Provider Internal Medicine Medical Oncology
DX: C50.211 Malignant neoplasm of upper-inner quadrant of right female breast (principal)
CPT/HCPCS: 77062

== ENCOUNTER 2022-08-30 14:39 | Oncology outpatient (recurring) (ONCR) | payer MEDICARE, OTHER, SELFPAY ==
[2022-08-30 15:32] LABS: Basophils # 0.1 10^3/uL (0.0-0.1); Basophils % 0.8 %; Eosinophils # 0.1 10^3/uL (0.0-0.8); Eosinophils % 1.7 %; Hematocrit 37.8 % (37.0-47.0); Hemoglobin 12.1 g/dL (11.5-15.3); Lymphocytes # 1.2 10^3/uL (0.8-4.8); Lymphocytes % 20.1 %; Mean Corpuscular Hemoglobin 26.6 pg (28.0-34.0); Mean Corpuscular Volume 83.1 fl (81-99); Mean Platelet Volume 11.1 fL (7.4-10.4); Monocytes # 0.9 10^3/uL (0.2-0.9); Monocytes % 14.2 %; Neutrophils # 3.76 10^3/uL (1.8-7.7); Nucleated Red Blood Cells % 0 %; Platelet Count 251 10^3/cmm (130-400); Red Blood Count 4.55 10^6/uL (4.1-5.3); Red Cell Distribution Width 18.4 % (12.1-15.1)
[2022-08-30] MEDS: denosumab 60 mg SDV SUBCUT (16:24)
[2022-08-30 16:38] LABS: Iron 40 ug/dL (37-145); Percent Saturation 8.6 % (20-50); Total Iron Binding Capacity 460 mcg/dl; Unsaturated Iron Binding 420 ug/dL (112-347)
[2022-08-30 18:09] LABS: Alanine Aminotransferase 15 U/L (0-33); Albumin Level 4.1 g/dL (3.5-5.2); Alkaline Phosphatase 116 U/L (35-105); Anion Gap 16.3 (5-19); Aspartate Amino Transferase 28 U/L (0-32); Blood Urea Nitrogen 10 mg/dL (8-23); Calcium 9.9 mg/dL (8.5-10.5); Carbon Dioxide 30 mmol/L (22-29); Chloride 92 mmol/L (98-107); Globulin 2.8 g/dL (1.3-4.6); Glucose 91 mg/dL (65-115); Osmolality Calculated 279 mOsm/kg (285-295); Potassium 3.3 mmol/L (3.5-5.1); Sodium 135 mmol/L (136-145); Total Protein 6.9 g/dL (6.6-8.7)
== END 2022-09-27 23:59 | disposition home or self-care (01) ==
PROVIDERS: PCP Internal Medicine; Visit Provider Internal Medicine Medical Oncology
DX: Z08 Encounter for follow-up examination after completed treatment for malignant neoplasm (principal); Z85.3 Personal history of malignant neoplasm of breast; D50.9 Iron deficiency anemia, unspecified; M81.0 Age-related osteoporosis without current pathological fracture; Z79.899 Other long term (current) drug therapy; Z92.21 Personal history of antineoplastic chemotherapy; Z87.891 Personal history of nicotine dependence
CPT/HCPCS: 36415; 80053; 83540; 83550; 85025; 96372; 99214; J0897

== ENCOUNTER 2022-09-29 13:55 | Oncology outpatient (recurring) (ONCR) | payer MEDICARE, OTHER, SELFPAY ==
[2022-09-29] MEDS: ferric carboxy (IVPB) 750 MG in sodium chloride 0.9% (100 ml) 100 ML 345 MG IV (14:29)
[2022-09-29] MEDS: sodium chloride 0.9% 250 ML 75 ML IV (14:29)
[2022-09-29 15:30] VITALS: BP 145/92; PULSE 82; RESP 18; TEMP 36.5; O2SAT 98
== END 2022-10-25 23:59 | disposition home or self-care (01) ==
PROVIDERS: PCP Internal Medicine; Visit Provider Internal Medicine Medical Oncology
DX: D50.9 Iron deficiency anemia, unspecified; Z79.899 Other long term (current) drug therapy; Z87.891 Personal history of nicotine dependence
CPT/HCPCS: 96365; J1439; J7050

== ENCOUNTER 2022-11-04 12:55 | Oncology outpatient (recurring) (ONCR) | payer MEDICARE, OTHER, SELFPAY ==
[2022-11-04 13:17] LABS: Basophils # 0.1 10^3/uL (0.0-0.1); Basophils % 0.9 %; Eosinophils # 0.1 10^3/uL (0.0-0.8); Eosinophils % 1.6 %; Hematocrit 40.9 % (37.0-47.0); Hemoglobin 13.3 g/dL (11.5-15.3); Lymphocytes % 16.1 %; Mean Corpuscular HGB Conc 32.5 g/dL (30.0-36.0); Mean Corpuscular Hemoglobin 28.5 pg (28.0-34.0); Mean Corpuscular Volume 87.8 fl (81-99); Monocytes # 0.6 10^3/uL (0.2-0.9); Monocytes % 9.4 %; Neutrophils # 4.57 10^3/uL (1.8-7.7); Neutrophils % 71.7 %; Nucleated Red Blood Cells % 0 %; Platelet Count 300 10^3/cmm (130-400); Red Blood Count 4.66 10^6/uL (4.1-5.3); Red Cell Distribution Width 22.4 % (12.1-15.1); White Blood Count 6.4 10^3/uL (4.0-10.0)
[2022-11-04 13:41] LABS: Ferritin 181 ng/mL (15-150); Iron 62 ug/dL (37-145); Percent Saturation 21.6 % (20-50); Total Iron Binding Capacity 287 mcg/dl; Unsaturated Iron Binding 225 ug/dL (112-347)
== END 2022-11-25 23:59 | disposition home or self-care (01) ==
LOC: ONCMED 12:56
PROVIDERS: PCP Internal Medicine; Visit Provider Internal Medicine Medical Oncology
DX: D50.9 Iron deficiency anemia, unspecified (principal); Z79.899 Other long term (current) drug therapy; Z87.891 Personal history of nicotine dependence
CPT/HCPCS: 36415; 82728; 83540; 83550; 85025

== ENCOUNTER 2022-11-24 15:09 | Outpatient (CLI) | payer MEDICARE, OTHER, SELFPAY ==
--- NOTE | 2022-11-24 15:37 | XR_ITS ---
WS: [email or web address] Exam: XR cervical spine 3V* [id number] Date/Time of Exam: 11/24/2022 3:38 PM Reason For Exam: CERVICAL SPONDOLYSIS Comparison 03/03/2015. No fracture or dislocation. There is posterior fusion from C2 to C4 with pedicle screws and posterior rods. The fusion is in satisfactory alignment. No sign of hardware failure. Disc spaces are preserve d. Facet arthrosis at all levels. Normal paraspinal soft tissue structures. The odontoid is intact. XR/XR cervical spine 3V* [id number] IMPRESSION: 1. Posterior fusion from C2 to C4 in satisfactory alignment without complicatio n. 2. Degenerative changes. No fracture or malalignment.
== END 2022-11-24 15:10 | disposition home or self-care (01) ==
LOC: RAD 15:18
PROVIDERS: PCP Internal Medicine; Visit Provider Surgery
DX: M47.812 Spondylosis without myelopathy or radiculopathy, cervical region (principal); M47.22 Other spondylosis with radiculopathy, cervical region; Z98.1 Arthrodesis status
CPT/HCPCS: 72040

== ENCOUNTER 2023-03-02 12:36 | Oncology outpatient (recurring) (ONCR) | payer MEDICARE, OTHER, SELFPAY ==
[2023-03-02 12:58] VITALS: BP 136/77; PULSE 71; RESP 18; TEMP 36.2
[2023-03-02 13:12] LABS: Basophils # 0.1 10^3/uL (0.0-0.1); Basophils % 1.2 %; Eosinophils # 0.1 10^3/uL (0.0-0.8); Eosinophils % 1.2 %; Hematocrit 40.4 % (37.0-47.0); Hemoglobin 13.2 g/dL (11.5-15.3); Lymphocytes # 0.9 10^3/uL (0.8-4.8); Lymphocytes % 16.4 %; Mean Corpuscular HGB Conc 32.7 g/dL (30.0-36.0); Mean Corpuscular Hemoglobin 30.8 pg (28.0-34.0); Mean Corpuscular Volume 94.2 fl (81-99); Mean Platelet Volume 9.9 fL (7.4-10.4); Monocytes # 0.6 10^3/uL (0.2-0.9); Monocytes % 10.4 %; Neutrophils # 3.98 10^3/uL (1.8-7.7); Neutrophils % 70.4 %; Nucleated Red Blood Cells % 0 %; Platelet Count 240 10^3/cmm (130-400); Red Blood Count 4.29 10^6/uL (4.1-5.3); Red Cell Distribution Width 16.8 % (12.1-15.1); White Blood Count 5.7 10^3/uL (4.0-10.0)
[2023-03-02 13:30] LABS: Alanine Aminotransferase 7 U/L (0-33); Albumin Level 4.2 g/dL (3.5-5.2); Alkaline Phosphatase 140 U/L (35-105); Anion Gap 12.8 (5-19); Aspartate Amino Transferase 23 U/L (0-32); Blood Urea Nitrogen 10 mg/dL (8-23); Calcium 8.6 mg/dL (8.5-10.5); Carbon Dioxide 31 mmol/L (22-29); Chloride 92 mmol/L (98-107); Ferritin 151 ng/mL (15-150); Globulin 2.8 g/dL (1.3-4.6); Glucose 76 mg/dL (65-115); Iron 71 ug/dL (37-145); Osmolality Calculated 272 mOsm/kg (285-295); Percent Saturation 20.6 % (20-50); Potassium 3.8 mmol/L (3.5-5.1); Sodium 132 mmol/L (136-145); Total Bilirubin 1.2 mg/dL (0.15-1.2); Total Iron Binding Capacity 344 mcg/dl; Unsaturated Iron Binding 273 ug/dL (112-347)
[2023-03-02] MEDS: denosumab 60 mg SDV SUBCUT (16:16)
== END 2023-03-27 23:59 | disposition home or self-care (01) ==
PROVIDERS: Nurse Practitioner Family; PCP Internal Medicine; Visit Provider Internal Medicine Medical Oncology
DX: Z08 Encounter for follow-up examination after completed treatment for malignant neoplasm; Z85.3 Personal history of malignant neoplasm of breast; D50.9 Iron deficiency anemia, unspecified; M81.0 Age-related osteoporosis without current pathological fracture; Z79.899 Other long term (current) drug therapy; Z92.3 Personal history of irradiation
CPT/HCPCS: 36415; 80053; 82728; 83540; 83550; 85025; 96372; 99214; J0897

== ENCOUNTER 2023-03-28 12:48 | Outpatient (CLI) | payer MEDICARE, OTHER, SELFPAY ==
--- NOTE | 2023-03-28 13:13 | XRR_ITS ---
PROCEDURE INFORMATION: Exam: XR Cervical Spine Exam date and time: 03/28/2023 1:16 PM Age: 77 years old Clinical indication: Condition or disease; Spondylosis; Prior surgery; Surgery date: 6+ months; Surgery type: 6 months post op; Patient HX: HX of breast cancer; Additional info: Cervical spondylosis TECHNIQUE: Imaging protocol: Radiologic exam of the cervical spine. Views: 2 or 3 views. COMPARISON: CR XR cervical spine 3V* [id number] 11/24/2022 3:39 PM FINDINGS: Tubes, catheters and devices: Partially visualized single lead cardiac device with right chest generator. Bones/joints: Stable posterior instrumented fusion of C2-4 with intact hardware, stable alignment, and no perihardware lucency or fracture. C2-4 intervertebral disc spaces are preserved. Mild intervertebral disc space narrowing, osteophytosis, uncovertebral spurring, and facet arthrosis from C4-7. Facet arthrosis at the instrumented levels. Soft tissues: Gksi-hddnito-kynd-right neck soft tissue calcification likely represents carotid atherosclerosis. Vasculature: Aortic arch atherosclerotic calcification. XR/XR cervical spine 3V* [id number] IMPRESSION: 1. Stable C2-4 posterior fusion changes without evidence of hardware complication or acute osseous abnormality. 2. Stable mild degenerative changes from C4-7.
== END 2023-03-28 12:49 | disposition home or self-care (01) ==
PROVIDERS: PCP Internal Medicine; Visit Provider Nurse Practitioner Family
DX: M47.812 Spondylosis without myelopathy or radiculopathy, cervical region (principal); Z98.1 Arthrodesis status
CPT/HCPCS: 72040

== ENCOUNTER 2023-05-20 11:40 | Emergency (ER) | payer MEDICARE, OTHER, SELFPAY ==
[2023-05-20 11:48] VITALS: BP 145/104; PULSE 124; RESP 17; TEMP 36.8; O2SAT 98; BMI 22.6
--- NOTE | 2023-05-20 11:48 | XRR_ITS ---
PROCEDURE INFORMATION: Exam: XR Chest Exam date and time: 05/20/2023 11:59 AM Age: 77 years old Clinical indication: Other: N/v; Prior surgery; Surgery date: 6+ months; Surgery type: RT breast; Additional info: Tachycardia TECHNIQUE: Imaging protocol: Radiologic exam of the chest. Views: 1 view. COMPARISON: CT chest w con* [id number] 11/25/2021 2:23 PM FINDINGS: Tubes, catheters and devices: There is intact pacemaker hardware. Lungs: Focal scarring or atelectasis in the left base. Pleural spaces: Unremarkable. No pleural effusion. No pneumothorax. Heart/Mediastinum: There is moderate cardiomegaly with prominence of the right heart border. A hiatal hernia is seen.. Bones/joints: No acute findings. There is cervical spine posterior metallic fusion hardware. XR/XR chest 1V portable [id number] IMPRESSION: Focal scarring or atelectasis in the left base.
--- NOTE | 2023-05-20 12:01 | ED_ITS ---
HPI - Arrhythmia/Palpitations General: Chief Complaint: Arrhythmia/Palpitations Stated Complaint: n/v/d has afib Time Seen by Provider: 05/20/23 11:48 History of Present Illness: Patient presents to the ER from urgent care for A-fib with RVR. Patient's also had nausea vomiting diaphoresis since last night with minimal to mild shortness of breath. Patient denies any chest pain. Patient does have A-fib and she is on Eliquis for this. Patient has a known bad heart valve that she is being worked up for surgery for. Review of Systems General: Reports: 10 or more systems reviewed and unremarkable except in HPI and below PFSH ED PFSH: Medical History Anxiety and depression Atrial fibrillation Breast cancer Degenerative arthritis Hyperlipemia Hypothyroidism Iron deficiency anemia Osteoporosis Right heart failure She is being followed by Dr. Urias in [place]. Vitamin D deficiency Surgical History History of cholecystectomy History of foot surgery History of hysterectomy with bilateral oophorectomy History of lumpectomy of right breast (08/2004) Excisional biopsy with axillary sentinel lymph node biopsy followed by additional axillary lymph node sampling History of open reduction and internal fixation (ORIF) procedure (12/2017) ORIF for traumatic right distal femur intercondylar periprosthetic fracture History of permanent cardiac pacemaker placement (2016) History of total right knee replacement Port-A-Cath in place Removed Family History Father Cancer stomach Grandmother Diabetes Other Hyperlipidemia Hypertension Denies family history of CAD (coronary artery disease) Clotting disorder Dementia Psychiatric illness Chronic kidney disease (CKD) Suicide Anesthesia complication Bleeding disorder Lung disease Stroke Social History Smoking and tobacco status: former smoker Quit status (tobacco): has quit using tobacco Year quit tobacco: 1996 Former quit date comment: Smoked for 30+ years Alcohol intake: never Physical Exam Const: COMMON NORMALS: no acute distress, average body habitus, patient oriented x3, no limitations, healthy appearing, alert and well nourished HENMT: COMMON NORMALS: normocephalic, atraumatic, hearing grossly normal bilaterally, external ears normal, Normal external nose present and moist oral mucous membranes HEAD & SCALP: normocephalic and atraumatic NOSE: Normal external nose present EXTERNAL EAR: Yes external ears normal Eye: COMMON NORMALS: Equal, round and reactive pupils present, EOMs intact bilaterally, conjunctivae normal and no scleral icterus CONJUNCTIVA: Yes conjunctivae normal PUPIL: Yes Equal, round and reactive pupils present Neck/C-Spine: COMMON NORMALS: full ROM, no lymphadenopathy, supple, no meningeal signs, no JVD and Thyroid normal THYROID: Thyroid normal Chest: COMMONS NORMALS: normal inspection of the chest and normal palpation of entire chest wall Resp: COMMON NORMALS: normal respiratory effort, No retractions, No use of accessory muscles and clear to auscultation bilaterally AUSCULTATION: clear to auscultation bilaterally Cardio: COMMON NORMALS: no JVD, S1 normal heart sound present, S2 normal heart sound present, No gallops present (Cardio), No clicks present (Cardio), No murmurs present (Cardio) and No rub (Cardio); negative for regular rate (Irregularly irregular) and negative for regular rhythm RATE: abnormal rate (Irregularly irregular) RHYTHM: abnormal rhythm HEART SOUNDS: S1 normal heart sound present and S2 normal heart sound present GI: COMMON NORMALS: Normal to inspection, nondistended, normoactive bowel sounds present, Soft to palpation, non-tender, No hepatosplenomegaly present and no masses PALPATION: Yes Soft to palpation and Yes No hepatosplenomegaly present Extremity: NARRATIVE EXTREMITY EXAM: 1-2+ pitting edema bilateral lower extremities Neuro: COMMON NORMALS: patient oriented x3 SENSORIUM/ORIENTATION: Yes alert MENINGEAL SIGNS: Yes no meningeal signs Course Vital Signs: Vital signs: Vital Signs Temperature 98.2 F 05/20/23 11:48 Pulse Rate 116 H 05/20/23 12:29 Respiratory Rate 18 05/20/23 12:29 Blood Pressure 138/91 05/20/23 15:04 Pulse Oximetry 98 05/20/23 12:29 Oxygen Delivery Me thod Room Air 05/20/23 12:29 MDM - Arrhythmia/Palpitations Medical Decision Making Patient presents to the ER with A-fib with RVR with a rate of in the 130s. Patient was given 2 doses of 10 mg each of Cardizem IV and 1 dose of Cardizem 60 p.o. and patient has maintained a rate in the 80s. Patient is feeling much better. Lab work with serial troponins was all benign. Patient be discharged home to follow-up with her PCP and/or rf microwave engineer. Differential Diagnosis Likely artial fibrillation; Unlikely palpitations, anxiety, sinus tachycardia, artial flutter, ventricular premature beats, supraventricular tachycardia, ventricular tachycardia or WPW Medical Records I reviewed the patient's medical records. Lab Data I reviewed the patient's lab results. 05/20/23 12:15 05/20/23 12:15 Radiology Impressions Chest X-Ray 05/20/23 11:48 IMPRESSION: Focal scarring or atelectasis in the left base. Laboratory Results WBC 6.16 10^3/uL (3.29-11.43) 05/20/23 12:15 RBC 4.37 10^6/uL (3.85-5.65) 05/20/23 12:15 Hgb 13.60 g/dL (11.27-16.99) 05/20/23 12:15 Hct 41.2 % (36-47) 05/20/23 12:15 MCV 94.3 fl (85-98) 05/20/23 12:15 MCH 31.1 pg (27-33) 05/20/23 12:15 MCHC 33.0 g/dL (30-55) 05/20/23 12:15 RDW 16.2 % (12.1-15.1) H 05/20/23 12:15 Plt Count 221 10^3/cmm (157-399) 05/20/23 12:15 MPV 9.8 fL (7.4-10.4) 05/20/23 12:15 Neut % (Auto) 77.3 % 05/20/23 12:15 Lymph % (Auto) 11.4 % 05/20/23 12:15 [place] % (Auto) 9.9 % 05/20/23 12:15 Eos % (Auto) 0.3 % 05/20/23 12:15 Baso % (Auto) 0.8 % 05/20/23 12:15 Neut # (Auto) 4.76 10^3/uL (1.8-7.7) 05/20/23 12:15 Lymph # (Auto) 0.7 10^3/uL (0.8-4.8) L 05/20/23 12:15 [place] # (Auto) 0.6 10^3/uL (0.2-0.9) 05/20/23 12:15 Eos # (Auto) 0.0 10^3/uL (0.0-0.8) 05/20/23 12:15 Baso # (Auto) 0.1 10^3/uL (0.0-0.1) 05/20/23 12:15 Nucleated RBC % (auto) 0 % 05/20/23 12:15 Nucleated RBCs # 0.0 /100WBC 05/20/23 12:15 PT 21.80 SECONDS (12.1-14.9) H 05/20/23 12:15 INR 1.83 (0.8-1.2) H 05/20/23 12:15 Sodium 130 mmol/L (136-145) L 05/20/23 12:15 Potassium 3.4 mmol/L (3.5-5.1) L 05/20/23 12:15 Chloride 90 mmol/L (98-107) L 05/20/23 12:15 Carbon Dioxide 25 mmol/L (22-29) 05/20/23 12:15 Anion Gap 18.4 (5-19) 05/20/23 12:15 BUN 6 mg/dL (8-23) L 05/20/23 12:15 Creatinine 0.5 mg/dL (0.5-0.9) 05/20/23 12:15 GFR Calculation Not Reportable 05/20/23 12:15 Glucose 87 mg/dL (65-115) 05/20/23 12:15 Calculated Osmolality 267 mOsm/kg (285-295) L 05/20/23 12:15 Calcium 8.8 mg/dL (8.5-10.5) 05/20/23 12:15 Magnesium 1.7 mg/dL (1.7-2.3) 05/20/23 12:15 Total Bilirubin 2.2 mg/dL (0.15-1.2) H 05/20/23 12:15 AST 22 U/L (0-32) 05/20/23 12:15 ALT 7 U/L (0-33) 05/20/23 12:15 Alkaline Phosphatase 112 U/L (35-105) H 05/20/23 12:15 Troponin T Baseline 19 ng/L (0-10) H 05/20/23 12:15 Troponin T 120 Minute 17.80 ng/L (0-10) H 05/20/23 14:29 Delta Troponin T -1.20 ABS# (0-10) L 05/20/23 14:29 NT-Pro-B Natriuret Pep 4557 pg/mL (0-450) H 05/20/23 12:15 Total Protein 7.4 g/dL (6.6-8.7) 05/20/23 12:15 Albumin 4.6 g/dL (3.5-5.2) 05/20/23 12:15 Globulin 2.8 g/dL (1.3-4.6) 05/20/23 12:15 Lipase 35 U/L (13-60) 05/20/23 12:15 TSH 5.82 uIU/mL (0.27-4.20) H 05/20/23 12:15 Urine Color Straw (Yellow) 05/20/23 13:13 Urine Appearance Clear (CLEAR) 05/20/23 13:13 Urine pH 5 (5-7) 05/20/23 13:13 Ur Specific [place] 1.010 (1.005-1.030) 05/20/23 13:13 Urine Protein Neg (Negative) 05/20/23 13:13 Urine Glucose (UA) Norm (Normal) 05/20/23 13:13 Urine Ketones Negative (Negative) 05/20/23 13:13 Urine Blood Neg (Negative) 05/20/23 13:13 Urine Nitrate Negative (Negative) 05/20/23 13:13 Urine Bilirubin Neg (Negative) 05/20/23 13:13 Urine Urobilinogen Norm mg/dL (Negative) 05/20/23 13:13 Ur Leukocyte Esterase Negative (Negative) 05/20/23 13:13 All radiology interpretation(s) finalized by discharge Discharge Plan Discharge Patient Disposition: Home Clinical Impression: Atrial fibrillation with rapid ventricular response Condition: Stable Prescriptions: No Action cholecalciferol (vitamin D3) 25 mcg (1,000 unit) capsule 25 mcg PO DAILY levothyroxine 100 mcg capsule 100 mcg PO DAILY atorvastatin 10 mg tablet 10 mg PO DAILY tramadol 50 mg tablet 50 mg PO Q6H PRN (Reason: Pain) furosemide 20 mg tablet 40 mg PO DAILY Eliquis 5 mg tablet 5 mg PO BID Qty: 180 3RF Hold Instructions: Resume on 01/09/21. Dexilant 60 mg capsule,biphase delayed releas 60 mg PO DAILY Qty: 90 3RF pregabalin 225 mg capsule 225 mg PO BID Qty: 180 3RF spironolactone 25 mg tablet 25 mg PO DAILY albuterol sulfate [Ventolin HFA] 90 mcg/actuation HFA aerosol inhaler 1 inh inhalation .prn dicyclomine 10 mg capsule 10 mg PO BID PRN (Reason: cramps) Qty: 60 0RF potassium chloride 10 mEq capsule, extended release 10 meq PO DAILY Qty: 90 1RF Calcium 600 600 mg calcium (1,500 mg) Tablet 600 mg PO DAILY metoprolol succinate 25 mg tablet extended release 24 hr See Rx Instructions .ROUTE .COMPLEX Rx Instructions: 1 TAB IN THE MORNING AND TWO IN THE EVENING metolazone 2.5 mg tablet 2.5 mg PO DAILY Discharge Orders: Discharge ED (Routine); Ordered 05/20/23 Ordered By: Sandoval Iyer Referrals: Gerardo Saravia MD [Primary Care Provider] - 1 week Patient Instructions: A-fib (Atrial Fibrillation) (ED) Activity Restrictions/Additional Instructions: Please follow-up with your family practice physician or rf microwave engineer within the next 7 to 10 days or sooner as needed for further evaluation and treatment. If your heart races again please return to the ER for further treatment. Coding Level of Care Code ED Parts Expediter for Wisam Tyler
[2023-05-20] MEDS: ondansetron 2 mg/ML SDV 2 mL 4 MG IVP (12:21)
[2023-05-20] MEDS: dilTIAZem 5 mg/mL SDV 5 mL 10 MG IVP ×2 (12:24→14:16)
[2023-05-20 12:29] VITALS: PULSE 116; RESP 18; O2SAT 98
[2023-05-20 12:31] LABS: Basophils # 0.1 10^3/uL (0.0-0.1); Basophils % 0.8 %; Eosinophils % 0.3 %; Hematocrit 41.2 % (36-47); Lymphocytes # 0.7 10^3/uL (0.8-4.8); Lymphocytes % 11.4 %; Mean Corpuscular Hemoglobin 31.1 pg (27-33); Mean Corpuscular Volume 94.3 fl (85-98); Mean Platelet Volume 9.8 fL (7.4-10.4); Monocytes # 0.6 10^3/uL (0.2-0.9); Monocytes % 9.9 %; Neutrophils # 4.76 10^3/uL (1.8-7.7); Neutrophils % 77.3 %; Nucleated Red Blood Cells % 0 %; Platelet Count 221 10^3/cmm (157-399); Red Blood Count 4.37 10^6/uL (3.85-5.65); Red Cell Distribution Width 16.2 % (12.1-15.1); White Blood Count 6.16 10^3/uL (3.29-11.43)
[2023-05-20 12:41] LABS: INR 1.83 (0.8-1.2)
[2023-05-20 12:47] LABS: Troponin(5th) Baseline 19 ng/L (0-10)
[2023-05-20 12:55] LABS: Alanine Aminotransferase 7 U/L (0-33); Albumin Level 4.6 g/dL (3.5-5.2); Alkaline Phosphatase 112 U/L (35-105); Anion Gap 18.4 (5-19); Aspartate Amino Transferase 22 U/L (0-32); Blood Urea Nitrogen 6 mg/dL (8-23); Calcium 8.8 mg/dL (8.5-10.5); Carbon Dioxide 25 mmol/L (22-29); Chloride 90 mmol/L (98-107); Globulin 2.8 g/dL (1.3-4.6); Glucose 87 mg/dL (65-115); Lipase 35 U/L (13-60); Magnesium 1.7 mg/dL (1.7-2.3); NT Pro B Type Natriuretic Pept 4557 pg/mL (0-450); Osmolality Calculated 267 mOsm/kg (285-295); Potassium 3.4 mmol/L (3.5-5.1); Sodium 130 mmol/L (136-145); Thyroid Stimulating Hormone 5.82 uIU/mL (0.27-4.20); Total Bilirubin 2.2 mg/dL (0.15-1.2); Total Protein 7.4 g/dL (6.6-8.7)
[2023-05-20 13:25] LABS: Add Urine Microscopic? NO; Charge for UA Resulting for Rev
[2023-05-20 13:31] LABS: Bilirubin Urine Neg (Negative); Blood Urine Neg (Negative); Glucose Urine UA Norm (Normal); Ketones Urine Negative (Negative); Leukocyte Esterase Urine Negative (Negative); Nitrate Urine Negative (Negative); Protein Urine Neg (Negative); Urine Appearance Clear (CLEAR); Urine Color Straw (Yellow); Urobilinogen Urine Norm (Negative); pH Urine 5 (5-7)
--- NOTE | 2023-05-20 13:48 | ECG_ITS ---
[facility] Test Date: 2023-05-20 Pat Name: Ayaka Butcher Department: Room: Gender: Female Crossbar Switch Adjuster: : 1945 Requested By: Sandoval Iyer Order Number: [id number] Anne MD: Didier Veliz M.D. Measurements Intervals [place] Rate: 126 P: 0 UT: 0 QRS: -17 QRSD: 104 T: 57 QT: 308 QTc: 447 Interpretive Statements ATRIAL FIBRILLATION WITH RAPID VENTRICULAR RESPONSE INCOMPLETE RIGHT BUNDLE BRANCH BLOCK [90+ ms QRS DURATION, TERMINAL R IN V1/V2, 40+ ms S IN I/aVL/V4/V5/V6] ST DEVIATION AND MODERATE T-WAVE ABNORMALITY, CONSIDER LATERAL ISCHEMIA [-0.1+ mV T-WAVE IN I/aVL/V5/V6] Compared to ECG 12/26/2017 02:31:11 Incomplete right bundle-branch block now present T-wave abnormality still present Possible ischemia still present Electronically Signed On 05-20-2023 20:32:44 CDT by Didier Veliz M.D. [id number]
[2023-05-20] MEDS: dilTIAZem ER (12HR) 60 mg Capsule PO (14:17)
[2023-05-20 15:04] VITALS: BP 138/91
[2023-05-20 15:55] VITALS: BP 140/101; PULSE 107
== END 2023-05-20 15:56 | disposition home or self-care (01) ==
PROVIDERS: Emergency Provider Emergency Medicine; PCP Internal Medicine
DX: I48.20 Chronic atrial fibrillation, unspecified (principal); Z79.01 Long term (current) use of anticoagulants; Z87.891 Personal history of nicotine dependence; Z85.3 Personal history of malignant neoplasm of breast; E78.5 Hyperlipidemia, unspecified
CPT/HCPCS: 36415; 71045; 80053; 81003; 83690; 83735; 83880; 84443; 84484; 85025; 85610; 93005; 96374; 96375; 99285; J2405; J3490

== ENCOUNTER 2023-05-21 09:14 | Emergency (ER) | payer MEDICARE, OTHER, SELFPAY ==
--- NOTE | 2023-05-21 09:19 | ECG_ITS ---
[facility] Test Date: 2023-05-21 Pat Name: Ayaka Butcher Department: Room: Gender: Female Offender Employment Specialist: : 1945 Requested By: Rodney Everett Order Number: [id number] Anne MD: Didier Veliz M.D. Measurements Intervals [place] Rate: 125 P: 0 SC: 0 QRS: -10 QRSD: 96 T: 38 QT: 311 QTc: 449 Interpretive Statements ATRIAL FIBRILLATION WITH RAPID VENTRICULAR RESPONSE INDETERMINATE AXIS INCOMPLETE RIGHT BUNDLE BRANCH BLOCK [90+ ms QRS DURATION, TERMINAL R IN V1/V2, 40+ ms S IN I/aVL/V4/V5/V6] ST DEVIATION AND MODERATE T-WAVE ABNORMALITY, CONSIDER LATERAL ISCHEMIA [-0.1+ mV T-WAVE IN I/aVL/V5/V6] Compared to ECG 05/20/2023 11:56:04 Indeterminate axis now present T-wave abnormality still present Possible ischemia still present Electronically Signed On 05-21-2023 14:51:25 CDT by Didier Veliz M.D. [email or web address]
[2023-05-21 09:21] VITALS: BP 163/104; PULSE 112; RESP 20; O2SAT 98
--- NOTE | 2023-05-21 09:32 | ED_ITS ---
HPI - Arrhythmia/Palpitations General: Chief Complaint: Arrhythmia/Palpitations Stated Complaint: high HR Time Seen by Provider: 05/21/23 09:18 Source: patient Mode of arrival: ambulatory History of Present Illness: 77-year-old female who presents to the emergency room with complaint of rapid heart rate and shortness of breath. Patient was seen yesterday she has a known history of atrial fibrillation she does see traffic engineering technician [place] recently her metoprolol increased she did not take her metoprolol this morning but she did take her levothyroxine. Yesterday she responded well to IV push Cardizem was given a single dose of p.o. Cardizem. She has noticeable swelling in her legs spent a long time issue has been been progressively worsening over time they had given her Lasix and metaxalone as an outpatient. She denies any chest pain at this time. MD complaint: rapid heart beat, heart racing and palpitations Duration: intermittent Severity: moderate Context: occurred during rest Arrhythmia history: atrial fibrillation Associated symptoms: Reports short of breath; Deny anxiety, cough, diaphoresis, muscle cramps, nausea, paresthesias, pre- syncope, sense of impending doom, syncope, vomiting or other Review of Systems Const: Denies: diaphoresis Card: Denies: syncope or pre-syncope GI: Denies: nausea or vomiting Musc: Denies: muscle cramps Psych: Denies: anxiety PFSH ED PFSH: Medical History Anxiety and depression Atrial fibrillation Breast cancer Degenerative arthritis Hyperlipemia Hypothyroidism Iron deficiency anemia Osteoporosis Right heart failure She is being followed by Dr. Urias in [place]. Vitamin D deficiency Surgical History History of cholecystectomy History of foot surgery History of hysterectomy with bilateral oophorectomy History of lumpectomy of right breast (08/2004) Excisional biopsy with axillary sentinel lymph node biopsy followed by additional axillary lymph node sampling History of open reduction and internal fixation (ORIF) procedure (12/2017) ORIF for traumatic right distal femur intercondylar periprosthetic fracture History of permanent cardiac pacemaker placement (2016) History of total right knee replacement Port-A-Cath in place Removed Family History Father Cancer stomach Grandmother Diabetes Other Hyperlipidemia Hypertension Denies family history of CAD (coronary artery disease) Clotting disorder Dementia Psychiatric illness Chronic kidney disease (CKD) Suicide Anesthesia complication Bleeding disorder Lung disease Stroke Social History Smoking and tobacco status: former smoker Quit status (tobacco): has quit using tobacco Year quit tobacco: 1996 Former quit date comment: Smoked for 30+ years Alcohol intake: never Physical Exam Const: GENERAL APPEARANCE: cooperative and comfortable ORIENTA TION/CONSCIOUSNESS: Yes awake, Yes oriented to person, Yes oriented to place and Yes oriented to time HENMT: COMMON NORMALS: normocephalic, atraumatic and hearing grossly normal bilaterally HEAD & SCALP: normocephalic and atraumatic Resp: COMMON NORMALS: normal respiratory effort, No retractions, No use of accessory muscles and clear to auscultation bilaterally AUSCULTATION: clear to auscultation bilaterally Cardio: RATE: tachycardic RHYTHM: abnormal rhythm irregularly irregular GI: COMMON NORMALS: Soft to palpation and No hepatosplenomegaly present AUSCULTATION: Yes normoactive bowel sounds PALPATION: Yes Soft to palpation, No Tenderness to palpation present (GI), No Guarding due to palpation present (GI) and Yes No hepatosplenomegaly present Extremity: COMMON NORMALS: normal to inspection, capillary refill normal, no clubbing, cyanosis or edema, no calf tenderness and no pedal edema Neuro: SENSORIUM/ORIENTATION: Yes oriented to person, Yes oriented to place and Yes oriented to time Skin: COMMON NORMALS: no rashes or lesions noted GENERAL SKIN EXAM: no rashes or lesions noted Course Vital Signs: Vital signs: Vital Signs Pulse Rate 85 05/21/23 10:59 Respiratory Rate 18 05/21/23 10:59 Blood Pressure 124/76 05/21/23 10:59 Pulse Oximetry 100 05/21/23 10:59 Oxygen Delivery Me thod Room Air 05/21/23 10:20 MDM - Arrhythmia/Palpitations Medical Decision Making Rate controlled after IV Cardizem given her oral metoprolol that she is regularly scheduled for also give short acting Cardizem patient's rate remained controlled was monitored for period of time there were no changes. We will discharge patient home started on Cardizem CD 120 increase her metoprolol to 50 twice daily follow-up with a traffic engineering technician early next week return if has further problems. At the time of discharge patient's rate has been controlled for quite some time she has no signs of decompensated congestive heart failure was advised she can return if she has further problems or recurrence of tachycardia. Medical Records I reviewed the patient's medical records. Lab Data I reviewed the patient's lab results. 05/21/23 09:35 05/21/23 09:35 Radiology Impressions Chest X-Ray 05/21/23 10:11 IMPRESSION: 1. Cardiomegaly without pulmonary vascular congestion. 2. Sliding-type hiatal hernia Laboratory Results WBC 6.35 10^3/uL (3.29-11.43) 05/21/23 09:35 RBC 4.39 10^6/uL (3.85-5.65) 05/21/23 09:35 Hgb 13.60 g/dL (11.27-16.99) 05/21/23 09:35 Hct 39.8 % (36-47) 05/21/23 09:35 MCV 90.7 fl (85-98) 05/21/23 09:35 MCH 31.0 pg (27-33) 05/21/23 09:35 MCHC 34.2 g/dL (30-55) 05/21/23 09:35 RDW 16.0 % (12.1-15.1) H 05/21/23 09:35 Plt Count 246 10^3/cmm (157-399) 05/21/23 09:35 MPV 9.6 fL (7.4-10.4) 05/21/23 09:35 Neut % (Auto) 79.2 % 05/21/23 09:35 Lymph % (Auto) 9.8 % 05/21/23 09:35 [place] % (Auto) 9.6 % 05/21/23 09:35 Eos % (Auto) 0.3 % 05/21/23 09:35 Baso % (Auto) 0.8 % 05/21/23 09:35 Neut # (Auto) 5.03 10^3/uL (1.8-7.7) 05/21/23 09:35 Lymph # (Auto) 0.6 10^3/uL (0.8-4.8) L 05/21/23 09:35 [place] # (Auto) 0.6 10^3/uL (0.2-0.9) 05/21/23 09:35 Eos # (Auto) 0.0 10^3/uL (0.0-0.8) 05/21/23 09:35 Baso # (Auto) 0.1 10^3/uL (0.0-0.1) 05/21/23 09:35 Nucleated RBC % (auto) 0 % 05/21/23 09:35 Nucleated RBCs # 0.0 /100WBC 05/21/23 09:35 Sodium 132 mmol/L (136-145) L 05/21/23 09:35 Potassium 3.2 mmol/L (3.5-5.1) L 05/21/23 09:35 Chloride 90 mmol/L (98-107) L 05/21/23 09:35 Carbon Dioxide 26 mmol/L (22-29) 05/21/23 09:35 Anion Gap 19.2 (5-19) H 05/21/23 09:35 BUN 6 mg/dL (8-23) L 05/21/23 09:35 Creatinine 0.6 mg/dL (0.5-0.9) 05/21/23 09:35 GFR Calculation Not Reportable 05/21/23 09:35 Glucose 73 mg/dL (65-115) 05/21/23 09:35 Calculated Osmolality 270 mOsm/kg (285-295) L 05/21/23 09:35 Calcium 8.7 mg/dL (8.5-10.5) 05/21/23 09:35 Total Bilirubin 3.0 mg/dL (0.15-1.2) H 05/21/23 09:35 AST 22 U/L (0-32) 05/21/23 09:35 ALT 7 U/L (0-33) 05/21/23 09:35 Alkaline Phosphatase 116 U/L (35-105) H 05/21/23 09:35 Total Protein 7.7 g/dL (6.6-8.7) 05/21/23 09:35 Albumin 4.8 g/dL (3.5-5.2) 05/21/23 09:35 Globulin 2.9 g/dL (1.3-4.6) 05/21/23 09:35 All radiology interpretation(s) finalized by discharge Discharge Plan Discharge Patient Disposition: Home Clinical Impression: Atrial fibrillation with rapid ventricular response Condition: Stable Prescriptions: New Cardizem LA 120 mg tablet extended release 24 hr 120 mg PO DAILY Qty: 30 0RF No Action cholecalciferol (vitamin D3) 25 mcg (1,000 unit) capsule 25 mcg PO DAILY levothyroxine 100 mcg capsule 100 mcg PO DAILY atorvastatin 10 mg tablet 10 mg PO DAILY tramadol 50 mg tablet 50 mg PO Q6H PRN (Reason: Pain) furosemide 20 mg tablet 40 mg PO DAILY Eliquis 5 mg tablet 5 mg PO BID Qty: 180 3RF Hold Instructions: Resume on 01/09/21. Dexilant 60 mg capsule,biphase delayed releas 60 mg PO DAILY Qty: 90 3RF pregabalin 225 mg capsule 225 mg PO BID Qty: 180 3RF spironolactone 25 mg tablet 25 mg PO DAILY albuterol sulfate [Ventolin HFA] 90 mcg/actuation HFA aerosol inhaler 1 inh inhalation .prn dicyclomine 10 mg capsule 10 mg PO BID PRN (Reason: cramps) Qty: 60 0RF potassium chloride 10 mEq capsule, extended release 10 meq PO DAILY Qty: 90 1RF calcium carbonate [Calcium 600] 600 mg calcium (1,500 mg) Tablet 600 mg PO DAILY metoprolol succinate 25 mg tablet extended release 24 hr See Rx Instructions .ROUTE .COMPLEX Rx Instructions: 1 TAB IN THE MORNING AND TWO IN THE EVENING metolazone 2.5 mg tablet 2.5 mg PO DAILY Discharge Orders: Discharge ED (Routine); Ordered 05/21/23 Ordered By: Rodney Campbell Referrals: Gerardo Saravia MD [Primary Care Provider] - Discharge Diet: Usual diet Discharge Activity: Increase activity as tolerated Patient Instructions: Opioid Safety, Pain Management Activity Restrictions/Additional Instructions: You are seen for exacerbation of your atrial fibrillation again it did improve with appropriate medications recommend that you increase your metoprolol to 50 twice a day and add Cardizem 120 long-acting once daily you should take your first dose this afternoon at around 3 or 4:00. Follow-up with your traffic engineering technician next week as soon as you are able. Coding Level of Care Code ED Differential Specialist for Wisam Tyler
[2023-05-21] MEDS: dilTIAZem 5 mg/mL SDV 5 mL 20 MG IVP (09:36)
[2023-05-21] MEDS: dilTIAZem 60 mg Tablet PO (09:38)
[2023-05-21 09:44] VITALS: BP 118/70; PULSE 78; RESP 15; O2SAT 99
[2023-05-21 09:51] LABS: Basophils # 0.1 10^3/uL (0.0-0.1); Basophils % 0.8 %; Eosinophils % 0.3 %; Hematocrit 39.8 % (36-47); Lymphocytes # 0.6 10^3/uL (0.8-4.8); Lymphocytes % 9.8 %; Mean Corpuscular HGB Conc 34.2 g/dL (30-55); Mean Corpuscular Volume 90.7 fl (85-98); Mean Platelet Volume 9.6 fL (7.4-10.4); Monocytes # 0.6 10^3/uL (0.2-0.9); Monocytes % 9.6 %; Neutrophils # 5.03 10^3/uL (1.8-7.7); Neutrophils % 79.2 %; Nucleated Red Blood Cells % 0 %; Platelet Count 246 10^3/cmm (157-399); Red Blood Count 4.39 10^6/uL (3.85-5.65); White Blood Count 6.35 10^3/uL (3.29-11.43)
--- NOTE | 2023-05-21 10:11 | XRR_ITS ---
PROCEDURE INFORMATION: Exam: XR Chest Exam date and time: 05/21/2023 10:15 AM Age: 77 years old Clinical indication: Dyspnea and other: High heart rate; Prior surgery; Surgery date: 6+ months; Surgery type: RT breast pacer TECHNIQUE: Imaging protocol: Radiologic exam of the chest. Views: 1 view. COMPARISON: CR (CHEST, ) 05/20/2023 11:59 AM FINDINGS: Tubes, catheters and devices: Single lead pacing device. Lungs: Unremarkable. No consolidation. Pleural spaces: Unremarkable. No pleural effusion. No pneumothorax. Heart/Mediastinum: Cardiomegaly. Sliding-type hiatal hernia. Bones/joints: Unremarkable. XR/XR chest 1V portable [id number] IMPRESSION: 1. Cardiomegaly without pulmonary vascular congestion. 2. Sliding-type hiatal hernia
[2023-05-21 10:18] LABS: Alanine Aminotransferase 7 U/L (0-33); Albumin Level 4.8 g/dL (3.5-5.2); Alkaline Phosphatase 116 U/L (35-105); Anion Gap 19.2 (5-19); Aspartate Amino Transferase 22 U/L (0-32); Blood Urea Nitrogen 6 mg/dL (8-23); Calcium 8.7 mg/dL (8.5-10.5); Carbon Dioxide 26 mmol/L (22-29); Chloride 90 mmol/L (98-107); Globulin 2.9 g/dL (1.3-4.6); Glucose 73 mg/dL (65-115); Osmolality Calculated 270 mOsm/kg (285-295); Potassium 3.2 mmol/L (3.5-5.1); Sodium 132 mmol/L (136-145); Total Protein 7.7 g/dL (6.6-8.7)
[2023-05-21] MEDS: metoprolol succinate ER (24 HR) 50 mg Tablet PO (10:18)
[2023-05-21 10:20] VITALS: BP 129/87; PULSE 83; RESP 16; O2SAT 100
[2023-05-21 10:59] VITALS: BP 124/76; PULSE 85; RESP 18; O2SAT 100
== END 2023-05-21 11:59 | disposition home or self-care (01) ==
PROVIDERS: Emergency Provider Family Medicine; PCP Internal Medicine
DX: I48.20 Chronic atrial fibrillation, unspecified (principal); Z79.01 Long term (current) use of anticoagulants; Z87.891 Personal history of nicotine dependence; Z95.0 Presence of cardiac pacemaker; Z85.3 Personal history of malignant neoplasm of breast; E78.5 Hyperlipidemia, unspecified; I50.9 Heart failure, unspecified
CPT/HCPCS: 71045; 80053; 85025; 93005; 96374; 99285; J3490

== ENCOUNTER 2023-06-15 12:34 | Oncology outpatient (recurring) (ONCR) | payer MEDICARE, OTHER, SELFPAY ==
[2023-06-15 13:20] VITALS: BP 102/65; PULSE 87; RESP 16; TEMP 37.3
[2023-06-15 13:30] LABS: Basophils # 0.1 10^3/uL (0.0-0.1); Basophils % 0.9 %; Eosinophils # 0.1 10^3/uL (0.0-0.8); Eosinophils % 1.6 %; Hematocrit 37.1 % (36-47); Lymphocytes % 17.9 %; Mean Corpuscular HGB Conc 33.7 g/dL (30-55); Mean Corpuscular Hemoglobin 31.2 pg (27-33); Mean Corpuscular Volume 92.5 fl (85-98); Mean Platelet Volume 10.2 fL (7.4-10.4); Monocytes # 0.8 10^3/uL (0.2-0.9); Monocytes % 13.6 %; Neutrophils # 3.67 10^3/uL (1.8-7.7); Neutrophils % 65.6 %; Nucleated Red Blood Cells % 0 %; Platelet Count 287 10^3/cmm (157-399); Red Blood Count 4.01 10^6/uL (3.85-5.65); Red Cell Distribution Width 15.9 % (12.1-15.1); White Blood Count 5.59 10^3/uL (3.29-11.43)
[2023-06-15 13:58] LABS: Alanine Aminotransferase 8 U/L (0-33); Albumin Level 4.2 g/dL (3.5-5.2); Alkaline Phosphatase 130 U/L (35-105); Aspartate Amino Transferase 23 U/L (0-32); Blood Urea Nitrogen 16 mg/dL (8-23); Calcium 8.9 mg/dL (8.5-10.5); Carbon Dioxide 34 mmol/L (22-29); Chloride 86 mmol/L (98-107); Ferritin 206 ng/mL (15-150); Globulin 2.8 g/dL (1.3-4.6); Glucose 75 mg/dL (65-115); Iron 100 ug/dL (37-145); Osmolality Calculated 266 mOsm/kg (285-295); Percent Saturation 30.8 % (20-50); Sodium 128 mmol/L (136-145); Total Bilirubin 1.1 mg/dL (0.15-1.2); Total Iron Binding Capacity 324 mcg/dl; Unsaturated Iron Binding 224 ug/dL (112-347)
== END 2023-06-27 23:59 | disposition home or self-care (01) ==
PROVIDERS: PCP Internal Medicine; Visit Provider Internal Medicine Medical Oncology
DX: D50.9 Iron deficiency anemia, unspecified (principal); Z79.899 Other long term (current) drug therapy; Z87.891 Personal history of nicotine dependence; C50.211 Malignant neoplasm of upper-inner quadrant of right female breast
CPT/HCPCS: 36415; 80053; 82728; 83540; 83550; 85025; 99214